=== PATIENT | female | born 1960 | race Caucasian/White ===

== ENCOUNTER → 2020-06-11 15:33 | Outpatient (BNVA) | payer OTHER, SELFPAY | PROVIDERS: PCP Internal Medicine; Referring Provider Internal Medicine; Visit Provider Nurse Practitioner | DX: Z76.89 Persons encountering health services in other specified circumstances (principal) ==

== ENCOUNTER 2020-07-11 12:17 | Outpatient (REF) | payer OTHER, SELFPAY ==
[2020-07-11 13:45] LABS: COVID-19 Test Negative (Negative)
== END 2020-07-11 12:18 | disposition home or self-care (01) ==
LOC: HO.EMPCOV 12:17
PROVIDERS: Visit Provider Internal Medicine
DX: Z20.828 Contact with and (suspected) exposure to other viral communicable diseases (principal)
CPT/HCPCS: 36415; 87635; C9803

== ENCOUNTER 2020-08-09 08:18 | Day surgery (SDC) | payer OTHER, SELFPAY ==
[2020-08-02 14:33] VITALS: BMI 27.4
--- NOTE | 2020-08-08 08:37 | P.CONAN_ITS ---
Documented by User: Bernie Sandoval 08/08/20 08:40 HPI - Anesthesia Eval Consult details Narrative: 60yo F for Colonoscopy [facility] Past Medical History Medical History Depression Elevated cholesterol Hypertension KELLY (obstructive sleep apnea) Thyroid nodule Family History Family History Father Parkinsons Asbestos exposure Mother COPD (chronic obstructive pulmonary disease) Diabetes Surgical History Surgical History H/O esophagogastroduodenoscopy History of partial splenectomy History of surgery on right wrist Hx of cholecystectomy Hx of colonoscopy Hx of hysterectomy Social History Social History Are you a primary healthcare business analyst to a significant other at home: No Do you presently have visiting nurse or other home services: No Alcohol intake: current Alcohol intake frequency: a few times a month Smoking Status: Former smoker Tobacco Type: Cigarette Smoking Quit Date: 2000 Use of substances other than those prescribed or required for medical reasons: No Advance Directives: No Advance Directives Information Provided: No Advance Directives on File: No Meds Allergies Allergy/AdvReac Type Severity Reaction Status Date / Time No Known Allergies Allergy Verified 08/02/20 14:23 [No Known Allergies*] Home Medications Medication Instructions Recorded Confirmed Type cholestyramine (with sugar) 4 gram See Rx Instructions .ROUTE .COMPLEX 06/11/20 08/02/20 History oral powder Exam Exam Date and Time: August 08, 2020 0837 Height,Weight and Vital Signs: Height 5 ft 6 in Weight 77.111 kg Assessment and Plan Assessment Anesthesia Assessment: Chart Reviewed Documented by User: Perri Weiss 08/09/20 09:25 [facility] Past Medical History Medical History Depression Elevated cholesterol Hypertension KELLY (obstructive sleep apnea) Thyroid nodule Family History Family History Father Parkinsons Asbestos exposure Mother COPD (chronic obstructive pulmonary disease) Diabetes Surgical History Surgical History H/O esophagogastroduodenoscopy History of partial splenectomy History of surgery on right wrist Hx of cholecystectomy Hx of colonoscopy Hx of hysterectomy Social History Social History Are you a primary healthcare business analyst to a significant other at home: No Do you presently have visiting nurse or other home services: No Alcohol intake: current Alcohol intake frequency: a few times a month Smoking Status: Former smoker Tobacco Type: Cigarette Smoking Quit Date: 2000 Use of substances other than those prescribed or required for medical reasons: No Advance Directives: No Advance Directives Information Provided: No Advance Directives on File: No Meds Allergies Allergy/AdvReac Type Severity Reaction Status Date / Time No Known Allergies Allergy Verified 08/02/20 14:23 [No Known Allergies*] Home Medications Medication Instructions Recorded Confirmed Type cholestyramine (with sugar) 4 gram See Rx Instructions .ROUTE .COMPLEX 06/11/20 08/02/20 History oral powder Exam Airway Mallampati Class: I (Permanent upper bridge) TM Dist: >3cm Neck ROM: Full Heart: RRR Lungs: CTA Assessment and Plan Assessment Anesthesia Assessment: Anesthesia Plan Discussed and Chart Reviewed Final Anesthetic Review NPO: Yes ASA Class: II Final Preanesthetic Review: Meds/Allgs Chart Reviewed, Consent Obtained/Reviewed and Anes Risks/Benef Reviewed Patient Risk: Low Procedure Risk: Low Anesthetic Plan Anesthetic Plan: MAC: Disposition: Standard PACU
[2020-08-09 08:49] VITALS: BP 142/68; PULSE 74; RESP 16; TEMP 37.1; O2SAT 98
[2020-08-09] MEDS: Lactated Ringers 1,000 ML 100 ML IVCONT (08:54)
--- NOTE | 2020-08-09 09:38 | MHC.SHP ---
Pre-Procedural Eval Section B Chief Complaint: screening Details of Present Illness: COLON CANCER SCREENING-NHR NO CLINICAL CHANGES FROM PREPROCEDURE EVAL IN 06/24 Relevant Family History (Specify if Yes): No Relevant Social History: None Present Medications: see Short Stay Collaborative assessment Medical History: Significant History (GERD, BILE SALT DIARRHEA, HYPERTENSION) History of Previous Operations: Relevant previous surgery/procedure and date(s) (PREVIOUS COLO-NEG.) Allergies: Allergies Allergy/AdvReac Type Severity Reaction Status Date / Time No Known Allergies Allergy Verified 08/02/20 14:23 [No Known Allergies*] Review of Systems Sugical H&P ROS: Negative: Constitution, Cardiovascular and Respiratory and Yes, Specify: Psychiatric (MILD ANXIETY) and Gastrointestinal (HX GERD/BILE SALT DIARRHEA) Exam Surgical H&P Exam: Normal: HEENT, Normal: Heart, Normal: Lungs, Normal: Extremities, Normal: Abdomen and Normal: Skin Plan Diagnosis/Plan: Unchanged I have reviewed the history and physical and performed a pertinent physical examination on my patient. No changes have occurred unless specified.yes
--- NOTE | 2020-08-09 10:03 | PM.PROC ---
Brief Operative Note Date of procedure: 08/09/20 Pre-op diagnosis: Colon cancer screening--NHR Post-op diagnosis: other (Normal exam) Procedure: Colonscopy--no biopsies. ROSENDA-NOrmal tone Scope insertied and easily advanced to sigmoid, transverse ascending colon into cecmu. Gentle pressere assist to get in. AO/Valve well seen. PREP: Good, moderate residual bilious coating easily flushed. Good rotational views on withdrawal. No polyps, no mucosal changes, ARV clear. REPEAT SCREENING IN 10 YEARS. Anesthesia: MAC (Emre ARITA CRNA) Surgeon: Thad Wilson Estimated blood loss (mL): 0 Pathology: none sent Condition: stable Disposition: PACU
[2020-08-09 10:06] VITALS: BP 144/77; PULSE 66; RESP 12; TEMP 36.1; O2SAT 97
[2020-08-09 10:21] VITALS: BP 151/73; PULSE 66; RESP 18; O2SAT 97
[2020-08-09 10:36] VITALS: BP 153/72; PULSE 63; RESP 18; O2SAT 98
== END 2020-08-09 11:06 | disposition home or self-care (01) ==
PROVIDERS: Visit Provider Internal Medicine Gastroenterology
PROC: 0DJD8ZZ Inspection of Lower Intestinal Tract, Via Natural or Artificial Opening Endoscopic (ICD-10-PCS; CPT 45378; principal; 2020-08-09 10:00)
DX: Z12.11 Encounter for screening for malignant neoplasm of colon (principal); I10 Essential (primary) hypertension
CPT/HCPCS: 45378

== ENCOUNTER → 2020-09-20 15:30 | Outpatient (BNVA) | payer OTHER, SELFPAY | PROVIDERS: PCP Internal Medicine; Visit Provider Nurse Practitioner ==

== ENCOUNTER 2020-09-25 16:02 | Outpatient (REF) | payer OTHER, SELFPAY ==
--- NOTE | ~2020-09-25 | MM_ITS ---
EXAMINATION: MM SCREENING DIGITAL BREAST TOMOSYNTHESIS, BILATERAL CLINICAL INFORMATION: Screening. Asymptomatic. The lifetime risk of breast cancer based on the Tyrer-Cuzick Model is 10%. COMPARISON: Mammography: 04/08/2019, 06/17/2017, outside exam 01/19/2015 ([facility]) TECHNIQUE: Digital breast tomosynthesis is performed in both the craniocaudal and mediolateral oblique views along with computer-aided detection (CAD). Synthesized 2D images are generated from the tomosynthesis. Additional left MLO view is provided. FINDINGS: The breasts are heterogeneously dense, which may obscure small masses (ACR BI-RADS breast composition Category c). Breast tissue composition borders on extremely dense. There is fibronodular parenchymal pattern similar to prior exams. No developing density. No interval mass or architectural abnormality or abnormal calcifications . Skin contours are smooth. No significant changes. MM/MM tomosynthesis screening BI IMPRESSION: No significant changes from prior studies. ASSESSMENT: BI-RADS 2: Benign RECOMMENDATION: Routine annual mammography screening. This patient's information was entered into a reminder system with a target due date for their next mammogram.
== END 2020-09-25 16:03 | disposition home or self-care (01) ==
LOC: HO.MAMMO 16:02
PROVIDERS: PCP Internal Medicine; Visit Provider Internal Medicine
DX: Z12.31 Encounter for screening mammogram for malignant neoplasm of breast (principal)
CPT/HCPCS: 77063; 77067

== ENCOUNTER 2020-10-11 10:22 | Outpatient (REF) | payer OTHER, SELFPAY ==
[2020-10-11 10:55] LABS: COVID-19 Test Negative (Negative)
== END 2020-10-11 10:23 | disposition home or self-care (01) ==
LOC: HO.EMPCOV 10:22
PROVIDERS: Visit Provider Internal Medicine
DX: Z20.822 Contact with and (suspected) exposure to COVID-19 (principal)
CPT/HCPCS: 36415; 87635; C9803

== ENCOUNTER → 2020-10-15 12:33 | Outpatient (BNVA) | payer OTHER, SELFPAY | PROVIDERS: Visit Provider Orthopaedic Surgery | DX: M70.61 Trochanteric bursitis, right hip (principal) | CPT/HCPCS: 99202; J1100 ==

== ENCOUNTER → 2020-11-01 14:15 | Outpatient (BNVA) | payer OTHER, SELFPAY | PROVIDERS: Visit Provider Nurse Practitioner ==

== ENCOUNTER 2021-05-10 06:43 | Outpatient (REF) | payer OTHER, SELFPAY ==
[2021-05-10 11:43] LABS: Hematocrit 45.2 % (37.0-47.0); Hemoglobin 14.7 g/dl (12.0-16.0); Mean Corpuscular HGB Conc 32.5 g/dl (31.0-35.0); Mean Corpuscular Hemoglobin 32.1 pg (27.0-33.0); Mean Corpuscular Volume 98.7 fL (80.0-98.0); Mean Platelet Volume 12.1 fL (9.4-12.3); Platelet Count 298 X10*3/uL (160-400); Red Blood Count 4.58 X10*6/uL (4.20-5.50); Red Cell Distribution Width 13.7 % (11.0-16.0); White Blood Count 5.7 X10*3/uL (4.8-10.8)
[2021-05-10 12:05] LABS: Estimated Average Glucose 105 mg/dL; Hemoglobin A1C 131.7052 umol/L; Hemoglobin A1c % 5.3 %
[2021-05-10 12:08] LABS: Alanine Aminotransferase 54 U/L (0-31); Albumin Level 4.3 g/dL (3.5-5.0); Alkaline Phosphatase 102 U/L (39-117); Anion Gap 15 (12-20); Aspartate Amino Transferase 34 U/L (5-31); Bilirubin Total 0.6 mg/dL (0.0-1.0); Blood Urea Nitrogen 14 mg/dL (9-16); Calcium 8.8 mg/dL (8.4-10.2); Carbon Dioxide 25 mmol/L (22-29); Chloride 106 mmol/L (96-108); Cholesterol 317 mg/dL; Estimated Glomerular Filt Rate > 60; Glucose Fasting 114 mg/dL (60-99); HDL Cholesterol 58 mg/dL; LDL Cholesterol Calculated 228 mg/dl; Potassium 4.5 mmol/L (3.3-5.1); Sodium 141 mmol/L (135-145); Triglycerides 158 mg/dL
[2021-05-10 17:11] LABS: Creatinine Urine 163.57 mg/dL; Microalbum/Creatinine Ratio Ur 4.8 ug/mg cr
== END 2021-05-10 06:44 | disposition home or self-care (01) ==
LOC: HO.HMGCLDS 06:43
PROVIDERS: PCP Internal Medicine; Visit Provider Internal Medicine
DX: Z00.00 Encounter for general adult medical examination without abnormal findings (principal); E78.5 Hyperlipidemia, unspecified; I10 Essential (primary) hypertension
CPT/HCPCS: 36415; 80053; 80061; 82043; 83036; 85027

== ENCOUNTER 2021-08-30 06:56 | Outpatient (REF) | payer OTHER, SELFPAY ==
[2021-08-30 11:07] LABS: Hematocrit 42.7 % (37.0-47.0); Hemoglobin 14.1 g/dl (12.0-16.0); Mean Corpuscular Hemoglobin 31.8 pg (27.0-33.0); Mean Corpuscular Volume 96.4 fL (80.0-98.0); Mean Platelet Volume 11.5 fL (9.4-12.3); Platelet Count 283 X10*3/uL (160-400); Red Blood Count 4.43 X10*6/uL (4.20-5.50); Red Cell Distribution Width 12.8 % (11.0-16.0); White Blood Count 6.2 X10*3/uL (4.8-10.8)
[2021-08-30 11:18] LABS: Appearance Urine CLEAR; Color Urine YELLOW; Glucose Urine UA NEG (NEG); Leukocyte Esterase Urine NEG (NEG); Nitrite Urine NEG (NEG); Urine Blood NEG (NEG); Urine Ketones NEG (NEG); Urine Protein NEG (NEG-TRACE)
[2021-08-30 11:26] LABS: Alanine Aminotransferase 35 U/L (0-31); Albumin Level 4.3 g/dL (3.5-5.0); Alkaline Phosphatase 100 U/L (39-117); Anion Gap 14 (12-20); Aspartate Amino Transferase 23 U/L (5-31); Bilirubin Total 0.6 mg/dL (0.0-1.0); Blood Urea Nitrogen 13 mg/dL (9-16); Calcium 9.2 mg/dL (8.4-10.2); Carbon Dioxide 26 mmol/L (22-29); Chloride 104 mmol/L (96-108); Cholesterol 187 mg/dL; Estimated Glomerular Filt Rate > 60; Glucose Fasting 110 mg/dL (60-99); HDL Cholesterol 55 mg/dL; LDL Cholesterol Calculated 104 mg/dl; Potassium 4.3 mmol/L (3.3-5.1); Sodium 140 mmol/L (135-145); Total Protein 7.1 g/dL (6.5-8.0); Triglycerides 140 mg/dL
[2021-08-30 11:29] LABS: RBC Urine 0 /HPF (0); Squamous Epithelial Cell Urine 1+ /LPF; WBC Urine 0 /HPF (0-4)
[2021-08-30 11:30] LABS: Mucus Urine 1+ /LPF
[2021-08-30 11:49] LABS: TSH reflex Free T4 2.52 uIU/mL (0.32-4.0); Vitamin D 25-OH Total 17.6 ng/mL (>30)
[2021-09-04 00:32] LABS: FIB-ALT 31 U/L (6-29); FIB-Alpha-2-Macroglobulin 176 mg/dL (106-279); FIB-Apolipoprotein A1 186 mg/dL (101-198); FIB-GGT 38 U/L (3-65); FIB-Haptoglobin 179 mg/dL (43-212); FIB-Total Bilirubin 0.5 mg/dL (0.2-1.2); Liver Fibrosis Score 0.12; Liver Fibrosis Stage F0; Nec Inflam Act Grade A0; Nec Inflam Act Score 0.12
== END 2021-08-30 06:57 | disposition home or self-care (01) ==
LOC: HO.HMGCLDS 06:56
PROVIDERS: Visit Provider Internal Medicine
DX: Z00.00 Encounter for general adult medical examination without abnormal findings (principal); I10 Essential (primary) hypertension; E78.5 Hyperlipidemia, unspecified
CPT/HCPCS: 36415; 80053; 80061; 81001; 81596; 82306; 84443; 85027

== ENCOUNTER → 2021-11-06 11:30 | Outpatient (BNVA) | payer SELFPAY | PROVIDERS: PCP Internal Medicine | DX: Z13.89 Encounter for screening for other disorder (principal) ==

== ENCOUNTER 2022-05-02 06:41 | Outpatient (REF) | payer OTHER, SELFPAY ==
[2022-05-02 11:37] LABS: Hematocrit 41.6 % (37.0-47.0); Hemoglobin 13.6 g/dl (12.0-16.0); Mean Corpuscular HGB Conc 32.7 g/dl (31.0-35.0); Mean Corpuscular Hemoglobin 32.2 pg (27.0-33.0); Mean Corpuscular Volume 98.6 fL (80.0-98.0); Mean Platelet Volume 11.8 fL (9.4-12.3); Platelet Count 256 X10*3/uL (160-400); Red Blood Count 4.22 X10*6/uL (4.20-5.50); Red Cell Distribution Width 12.8 % (11.0-16.0); White Blood Count 5.6 X10*3/uL (4.8-10.8)
[2022-05-02 11:52] LABS: Appearance Urine Clear; Color Urine Yellow; Glucose Urine UA Negative (Negative); Leukocyte Esterase Urine Negative (Negative); Nitrite Urine Negative (Negative); Specific Gravity - Urine 1.015 (1.005-1.025); Urine Blood Negative (Negative); Urine Ketones Negative (Negative); Urine Protein Negative (Neg-Trace)
[2022-05-02 11:57] LABS: Bacteria Urine None Seen (None Seen); Hyaline Casts Urine 0-2 /LPF (0-2); RBC Urine 0-2 /HPF (0-2); Squamous Epithelial Cell Urine 0-2 /HPF (0-2); WBC Urine 0-5 /HPF (0-5)
[2022-05-02 12:03] LABS: Alanine Aminotransferase 43 U/L (0-31); Albumin Level 4.3 g/dL (3.5-5.0); Alkaline Phosphatase 94 U/L (39-117); Anion Gap 15 (12-20); Aspartate Amino Transferase 29 U/L (5-31); Bilirubin Total 0.3 mg/dL (0.0-1.0); Blood Urea Nitrogen 14 mg/dL (9-16); Calcium 9.2 mg/dL (8.4-10.2); Carbon Dioxide 26 mmol/L (22-29); Chloride 103 mmol/L (96-108); Cholesterol 185 mg/dL; Estimated Glomerular Filt Rate > 60; Glucose Fasting 111 mg/dL (60-99); HDL Cholesterol 60 mg/dL; LDL Cholesterol Calculated 104 mg/dl; Potassium 4.4 mmol/L (3.3-5.1); Sodium 140 mmol/L (135-145); Total Protein 6.9 g/dL (6.5-8.0); Triglycerides 105 mg/dL
== END 2022-05-02 06:42 | disposition home or self-care (01) ==
LOC: HO.HMGCLDS 06:41
PROVIDERS: PCP Internal Medicine; Visit Provider Internal Medicine
DX: Z00.00 Encounter for general adult medical examination without abnormal findings (principal); E78.5 Hyperlipidemia, unspecified; I10 Essential (primary) hypertension
CPT/HCPCS: 36415; 80053; 80061; 81001; 84443; 85027

== ENCOUNTER 2022-10-29 13:33 | Outpatient (REF) | payer OTHER, SELFPAY ==
--- NOTE | ~2022-10-29 | MM_ITS ---
EXAMINATION: MM SCREENING DIGITAL BREAST TOMOSYNTHESIS, BILATERAL CLINICAL INFORMATION: Screening. Asymptomatic. The lifetime risk of breast cancer based on the Tyrer-Cuzick Model is 11.1%. COMPARISON: Mammography: September 25, 2020 and studies dating back to August 09, 2013 TECHNIQUE: Digital breast tomosynthesis is performed in both the craniocaudal and mediolateral oblique views along with computer-aided detection (CAD). Synthesized 2D images are generated from the tomosynthesis. FINDINGS: The breasts are extremely dense, which lowers the sensitivity of mammography (ACR BI-RADS breast composition Category d). There are no significant masses, abnormal calcifications, or other abnormalities. MM/MM tomosynthesis screening BI IMPRESSION: No significant changes ASSESSMENT: BI-RADS 1: Negative RECOMMENDATION: Routine annual mammography screening. This patient's information was entered into a reminder system with a target due date for their next mammogram.
== END 2022-10-29 13:34 | disposition home or self-care (01) ==
LOC: HO.MAMMO 13:33
PROVIDERS: Visit Provider Internal Medicine
DX: Z12.31 Encounter for screening mammogram for malignant neoplasm of breast (principal)
CPT/HCPCS: 77063; 77067

== ENCOUNTER 2022-12-19 06:49 | Outpatient (REF) | payer OTHER, SELFPAY ==
[2022-12-19 11:17] LABS: MANUAL DIFF FLAG NO
[2022-12-19 11:32] LABS: Basophils Percent Auto 0.5 % (0-2); Eosinophils Absolute Auto 0.2 X10*3/uL (0.0-0.4); Eosinophils Percent Auto 2.3 % (0-4); Hematocrit 42.8 % (37.0-47.0); Imm Gran Abs Auto 0.01 X10*3/uL (0.00-0.03); Imm Gran Pct Auto 0.2 % (0.0-0.4); Lymphocytes Absolute Auto 1.8 X10*3/uL (1.2-4.9); Lymphocytes Percent Auto 27.9 % (20-40); Mean Corpuscular HGB Conc 32.7 g/dl (31.0-35.0); Mean Corpuscular Hemoglobin 32.3 pg (27.0-33.0); Mean Corpuscular Volume 98.8 fL (80.0-98.0); Mean Platelet Volume 11.5 fL (9.4-12.3); Monocytes Absolute Auto 0.7 X10*3/uL (0.1-1.2); Monocytes Percent Auto 10.9 % (2-11); Neutrophils Absolute Auto 3.8 x10*3/uL (2.0-8.3); Neutrophils Percent Auto 58.2 % (45-73); Platelet Count 267 X10*3/uL (160-400); Red Blood Count 4.33 X10*6/uL (4.20-5.50); Red Cell Distribution Width 13.2 % (11.0-16.0); White Blood Count 6.5 X10*3/uL (4.8-10.8)
[2022-12-19 11:57] LABS: Alanine Aminotransferase 53 U/L (0-31); Albumin Level 4.2 g/dL (3.5-5.0); Alkaline Phosphatase 99 U/L (39-117); Anion Gap 14 (12-20); Aspartate Amino Transferase 40 U/L (5-31); Bilirubin Total 0.7 mg/dL (0.0-1.0); Blood Urea Nitrogen 13 mg/dL (9-16); Calcium 9.4 mg/dL (8.4-10.2); Carbon Dioxide 25 mmol/L (22-29); Chloride 106 mmol/L (96-108); Cholesterol 178 mg/dL; Estimated Glomerular Filt Rate > 60; Glucose Fasting 106 mg/dL (60-99); HDL Cholesterol 58 mg/dL; LDL Cholesterol Calculated 100 mg/dl; Potassium 4.4 mmol/L (3.3-5.1); Sodium 141 mmol/L (135-145); Total Protein 7.2 g/dL (6.5-8.0); Triglycerides 103 mg/dL
[2022-12-19 12:18] LABS: TSH reflex Free T4 2.97 uIU/mL (0.32-4.0)
[2022-12-19 12:23] LABS: Folate 11.7 ng/mL (> or = 4.0); Vitamin B12 406 pg/mL (200-900)
== END 2022-12-19 06:50 | disposition home or self-care (01) ==
LOC: HO.HMGCLDS 06:49
PROVIDERS: PCP Internal Medicine; Visit Provider Internal Medicine
DX: Z00.00 Encounter for general adult medical examination without abnormal findings (principal); E78.5 Hyperlipidemia, unspecified; I10 Essential (primary) hypertension
CPT/HCPCS: 36415; 80053; 80061; 82306; 82607; 82746; 84443; 85025

== ENCOUNTER 2023-06-19 06:46 | Outpatient (REF) | payer OTHER, SELFPAY ==
[2023-06-19 11:19] LABS: MANUAL DIFF FLAG NO
[2023-06-19 11:25] LABS: Basophils Percent Auto 0.7 % (0-2); Eosinophils Absolute Auto 0.2 X10*3/uL (0.0-0.4); Eosinophils Percent Auto 2.8 % (0-4); Hematocrit 41.6 % (37.0-47.0); Hemoglobin 13.6 g/dl (12.0-16.0); Imm Gran Abs Auto 0.01 X10*3/uL (0.00-0.03); Imm Gran Pct Auto 0.2 % (0.0-0.4); Lymphocytes Absolute Auto 1.8 X10*3/uL (1.2-4.9); Mean Corpuscular HGB Conc 32.7 g/dl (31.0-35.0); Mean Corpuscular Hemoglobin 31.4 pg (27.0-33.0); Mean Corpuscular Volume 96.1 fL (80.0-98.0); Mean Platelet Volume 11.8 fL (9.4-12.3); Monocytes Absolute Auto 0.8 X10*3/uL (0.1-1.2); Monocytes Percent Auto 13.5 % (2-11); Neutrophils Absolute Auto 3.2 x10*3/uL (2.0-8.3); Neutrophils Percent Auto 52.8 % (45-73); Platelet Count 255 X10*3/uL (160-400); Red Blood Count 4.33 X10*6/uL (4.20-5.50); Red Cell Distribution Width 13.2 % (11.0-16.0)
[2023-06-19 11:40] LABS: Estimated Average Glucose 111 mg/dL; Hemoglobin A1c % 5.5 % (<6.0)
[2023-06-19 12:11] LABS: Alanine Aminotransferase 28 U/L (0-31); Albumin Level 4.2 g/dL (3.5-5.0); Alkaline Phosphatase 100 U/L (39-117); Anion Gap 15 (12-20); Aspartate Amino Transferase 19 U/L (5-31); Bilirubin Total 0.4 mg/dL (0.0-1.0); Blood Urea Nitrogen 16 mg/dL (9-16); Calcium 8.9 mg/dL (8.4-10.2); Carbon Dioxide 22 mmol/L (22-29); Chloride 109 mmol/L (96-108); Cholesterol 161 mg/dL (<200); Estimated Glomerular Filt Rate > 60; Glucose Fasting 114 mg/dL (60-99); HDL Cholesterol 52 mg/dL (>40); LDL Cholesterol Calculated 91 mg/dL (<100); Potassium 4.1 mmol/L (3.3-5.1); Sodium 142 mmol/L (135-145); Total Protein 7.1 g/dL (6.5-8.0); Triglycerides 92 mg/dL (<150)
[2023-06-19 12:14] LABS: Vitamin D 25-OH Total 21.4 ng/mL (>30)
[2023-06-19 14:01] LABS: Creatinine Urine 131.96 mg/dL
== END 2023-06-19 06:47 | disposition home or self-care (01) ==
LOC: HO.HMGCLDS 06:46
PROVIDERS: PCP Internal Medicine; Visit Provider Internal Medicine
DX: R73.9 Hyperglycemia, unspecified (principal); I10 Essential (primary) hypertension; E55.9 Vitamin D deficiency, unspecified; E78.5 Hyperlipidemia, unspecified
CPT/HCPCS: 36415; 80053; 80061; 82043; 82306; 82570; 83036; 85025

== ENCOUNTER 2023-06-24 13:19 | Outpatient (AMB) | payer OTHER, SELFPAY ==
[2023-06-24 13:48] VITALS: BP 124/76; PULSE 83; O2SAT 96; BMI 29.7
--- NOTE | 2023-06-24 13:48 | MHC.PC.OV ---
Vital Signs 06/24/23 13:48 Height 5 ft 6 in Weight 184 lb BMI 29.7 BP 124/76 Blood Pressure Location Lt brachial Position Sitting Pulse 83 Pulse Source Pulse Oximeter Pulse Oximetry (%) 96 Oxygen Delivery Method Room Air Intake Visit Reasons: PE Intake Note: Pt is here today for PE. Allergies No Known Allergies [No Known Allergies*] Allergy (Verified 06/24/23 13:49) Tobacco use date assessed: 06/24/23 Fall risk assessment: No Falls in past year Last assessed Fall Risk: 06/24/23 Dental Screening Dental Screen Date: 06/24/23 Did you have a dental visit in the last 12 months?: Yes Did you have a dental problem in the last 6 months where you did not have access to dental care?: No Was dental information given to patient?: Patient has dentist HPI PE HPI Details Patient presents for PE. She complains of bilateral shoulder pain worse when using her upper extremities lifting or carrying and bilateral lateral thigh pain when walking longer distance. Patient denies lower back pain sciatica symptoms change in the bowel or bladder function. [facility] Medical History Annual physical exam Depression Dysplastic nevi Elevated cholesterol Elevated LFTs Hyperlipidemia Hypertension KELLY (obstructive sleep apnea) Thyroid nodule Tinnitus Trochanteric bursitis of right hip Surgical History History of partial splenectomy History of surgery on right wrist Hx of hysterectomy Hx of cholecystectomy H/O esophagogastroduodenoscopy Hx of colonoscopy Family History Father Parkinsons Asbestos exposure Mother COPD (chronic obstructive pulmonary disease) Diabetes Social History Household Members: Spouse Housing: House Are you a primary day care home provider to a significant other at home: No Do you presently have visiting nurse or other home services: No Alcohol intake: current Alcohol intake frequency: holidays/special occasions only Patient Tobacco Use Status: Former Tobacco user Quit Date: 2000 e-Cigarette/Vaping Use: Never Used Current occupational status: employed Cognitive needs: No Hearing needs: No Vision needs: Yes Questionnaire Thrive Questionnaire Date Thrive assessed: 12/22/22 CARA-7 AMB Questionnaire CARA-7 Date CARA - 7 assessed: 12/22/22 Source: Developed by Drs. Sunny Monk, Lou Pinto, Sourav Ott and colleagues, with an educational moustapha from [email or web address]. Review of Systems Const All systems reviewed & are unremarkable except as noted in HPI and below Reports no additional complaints Eyes Reports no additional complaints ENT Reports no additional complaints Card Reports no additional complaints Resp Reports no additional complaints GI Reports no additional complaints Reports no additional complaints Musc Reports no additional complaints Physical exam (Primary Care) Vital Signs: Last Vital Signs Pulse 83 06/24/23 13:48 BP 124/76 06/24/23 13:48 Pulse Ox 96 06/24/23 13:48 Oxygen Delivery Method Room Air 06/24/23 13:48 BMI result Body Mass Index 29.7 Tobacco/Smoking Status: Tobacco use Status Tobacco use date assessed 06/24/23 06/24/23 13:50 Patient Tobacco Use Status Former Tobacco user 06/24/23 13:50 e-Cigarette/Vaping Use Never Used 06/24/23 13:50 Thrive Assessment: Date of Thrive Assessment Date Thrive assessed 12/22/22 06/24/23 13:50 Const General: no acute distress HENMT Head: Yes normal to inspection Ears: hearing grossly normal bilaterally Face and sinus: Yes normal facial exam Eyes General: appearance normal, both eyes and all related structures Neck Neck: Yes no lymphadenopathy and Yes supple Resp Effort & Inspection: normal respiratory effort Auscultation: clear to auscultation bilaterally Cardio Rhythm: regular rhythm Heart sounds: S1 normal heart sound present and S2 normal heart sound present GI Inspection: Yes normal to inspection Palpation (GI): Soft to palpation Percussion: Yes normal to percussion Auscultation: normal bowel sounds Extrem Other: Decreased range of motion of the right shoulder, there is no joint tenderness erythema or warmth General: Yes no clubbing, cyanosis or edema Assessment and Plan Assessment & Plan (1) Annual physical exam: Code(s): Z00.00 - Encounter for general adult medical examination without abnormal findings Plan: Well-balanced diet and regular physical activity discussed with the patient. She is up-to-date with mammogram and will schedule dexa (2) Hyperlipidemia: Comment: cont statin Code(s): E78.5 - Hyperlipidemia, unspecified Plan: Patient was advised to decrease Crestor to half a tablet and at c/o Q10 supplement if the myalgia and arthralgia persist statin will be held for 2 months (3) Shoulder pain, right: Code(s): M25.511 - Pain in right shoulder Plan: Check x-ray start range of motion exercises patient declined physical therapy (4) Myalgia: Code(s): M79.10 - Myalgia, unspecified site Plan: As above check sed rate and CPK level (5) Postmenopausal: Code(s): Z78.0 - Asymptomatic menopausal state Plan: Check DEXA (6) Hypertension: Code(s): I10 - Essential (primary) hypertension Plan: Continue medications Orders: Orders Erythrocyte Sedimentation Rate Today M79.10 - Myalgia, unspecified site Creatine Kinase Total Today M79.10 - Myalgia, unspecified site XR DEXA axial skeleton Today Z00.00 - Encounter for general adult medical examination without abnormal findings, Z78.0 - Asymptomatic menopausal state XR shoulder RT min 2V Today M25.511 - Pain in right shoulder Coding Level of Care Code Est Pt Prev Care 40-64y(04574) Diagnoses Annual physical exam Z00.00 Hyperlipidemia E78.5 Shoulder pain, right M25.511 Myalgia M79.10 Postmenopausal Z78.0 Hypertension I10
== END 2023-06-24 14:42 | disposition home or self-care (01) ==
PROVIDERS: Visit Provider Internal Medicine
DX: Z00.00 Encounter for general adult medical examination without abnormal findings (principal); E78.5 Hyperlipidemia, unspecified; M25.511 Pain in right shoulder; M79.10 Myalgia, unspecified site; Z78.0 Asymptomatic menopausal state; I10 Essential (primary) hypertension
CPT/HCPCS: 99396

== ENCOUNTER 2023-06-24 14:42 | Outpatient (REF) | payer OTHER, SELFPAY ==
[2023-06-24 18:02] LABS: Erythrocyte Sedimentation Rate 8 MM/HR (0-20)
== END 2023-06-24 14:43 | disposition home or self-care (01) ==
LOC: HO.HMGCLDS 14:42
PROVIDERS: PCP Internal Medicine; Visit Provider Internal Medicine
DX: M79.10 Myalgia, unspecified site (principal)
CPT/HCPCS: 36415; 82550; 85652

== ENCOUNTER 2023-07-27 06:58 | Outpatient (REF) | payer OTHER, SELFPAY | END 2023-07-27 06:59 | disposition home or self-care (01) | LOC: HO.HMGCLDS 06:58 | PROVIDERS: PCP Internal Medicine; Visit Provider Internal Medicine | DX: R74.8 Abnormal levels of other serum enzymes (principal) | CPT/HCPCS: 36415; 82550 ==

== ENCOUNTER 2023-08-06 08:01 | Outpatient (AMB) | payer OTHER, SELFPAY ==
--- NOTE | 2023-08-06 08:05 | MHC.OFFWIV ---
Intake Vital Signs 08/06/23 08:09 Height 5 ft 6 in Weight 184 lb BMI 29.7 BP 142/78 H Blood Pressure Location Lt brachial Position Sitting Pulse 91 Pulse Source Pulse Oximeter Temp 99.0 F Temp Source Oral Pulse Oximetry (%) 96 Oxygen Delivery Method Room Air Intake Visit Reasons: EP Cough, Lightheaded, wheezing (masked) Intake Note: pt is here for c/o cough, lightheaded, wheezing, patient states it started since thursday Patient Tobacco Use Status: Former Tobacco user Quit Date: 2000 Allergies No Known Allergies [No Known Allergies*] Allergy (Verified 08/06/23 08:07) Medication List - Last Reconciled 08/06/23 by Shoshana Escudero NP acetaminophen 1,000 mg (2 x 500 mg) PO Q6H PRN albuterol sulfate 90 mcg/actuation 2 puffs inhalation Q4-6H PRN amlodipine-olmesartan 10-40 mg 1 tab PO DAILY azithromycin 500 mg PO DAILY 5 days cholestyramine (with sugar) 4 gram 4 g p.o. b.i.d. dissolved in water; PO; 30 days esomeprazole magnesium 40 mg PO DAILY paroxetine HCl 40 mg PO DAILY prednisone 50 mg PO DAILY 5 days rosuvastatin 20 mg PO DAILY Do you need a note to return to daycare/school/sports/work: No HPI HPI Comments History of Present Illness Details 63 y/o female presents to walk in clinic with c/o cough, chest tightness, fatigue, anorexia and wheezing since Thursday. Pt has h/o Asthma as a child. Never needed any treatment as adult. [facility] Medical History Annual physical exam Depression Dysplastic nevi Elevated cholesterol Elevated LFTs Hyperlipidemia Hypertension KELLY (obstructive sleep apnea) Thyroid nodule Tinnitus Trochanteric bursitis of right hip Surgical History History of partial splenectomy History of surgery on right wrist Hx of hysterectomy Hx of cholecystectomy H/O esophagogastroduodenoscopy Hx of colonoscopy Family History Father Parkinsons Asbestos exposure Mother COPD (chronic obstructive pulmonary disease) Diabetes Social History Household Members: Spouse Housing: House Are you a primary care manager cna to a significant other at home: No Do you presently have visiting nurse or other home services: No Alcohol intake: current Alcohol intake frequency: holidays/special occasions only Patient Tobacco Use Status: Former Tobacco user Quit Date: 2000 e-Cigarette/Vaping Use: Never Used Current occupational status: employed Cognitive needs: No Hearing needs: No Vision needs: Yes Physical Exam Vital Signs: Last Vital Signs Temp 99.0 F 08/06/23 08:09 Pulse 91 08/06/23 08:09 BP 142/78 H 08/06/23 08:09 Pulse Ox 96 08/06/23 08:09 Oxygen Delivery Method Room Air 08/06/23 08:09 BMI result Body Mass Index 29.7 Const General: no acute distress HEENT Head: Yes normocephalic Ears: external ears normal and TM's normal bilaterally General nose exam: Abnormal mucous membranes and turbinates present boggy and erythematous Face and sinus: Yes sinus tenderness Mouth: moist mucous membranes Throat: Yes posterior oropharynx normal Resp Effort & Inspection: audible wheezes and Actively coughing Auscultation: no crackles, no rales, no rhonchi and wheezes scattered wheezes Cardio Palpation: normal PMI Rate: regular rate Rhythm: regular rhythm Office Procedures Nebulizer Treatment Nebulizer Treatment [id number] RX initial, or Nebulizer Subsequent Treatment Office Meds ipratropium 0.5 mg-albuterol 3 mg (2.5 mg base)/3 mL nebulization soln Performing Provider: Shoshana Escudero NP Performing Location: [facility] Administered by: Monika Lanza RN on 08/06/23 08:27 Dose Route Admin Location Dispensed Lot Number Expiration Date NDC Medical Secretary Receptionist 3 mL inhalation 3 mL [id number] 04/05/24 6857-3764-80 [facility] Assessment & Plan Assessment & Plan (1) Upper respiratory infection: Code(s): J06.9 - Acute upper respiratory infection, unspecified Qualifiers: URI type: unspecified viral URI Qualified Code(s): J06.9 - Acute upper respiratory infection, unspecified Plan: - Rest - warm fluids. -OTC cold remedies. Orders: Orders AMB Nebulizer Treatment Today R06.2 - Wheezing Medications: New azithromycin 500 mg PO DAILY 5 days 5 tabs 0RF prednisone 50 mg PO DAILY 5 days 5 tabs 0RF albuterol sulfate 90 mcg/actuation 2 puffs inhalation Q4-6H PRN 6.7 grams 0RF shortness of breath or wheezing J06.9 - Acute upper respiratory infection, unspecified acetaminophen 1,000 mg (2 x 500 mg) PO Q6H PRN 30 caps 0RF fever R51.9 - Headache, unspecified Coding Level of Care Code Est Pt Level 3 (60225) Diagnoses Viral upper respiratory tract infection J06.9 URI type: unspecified viral URI CPT Codes Nebulizer Treatment - Nebulizer Treatment, initial or subsequent: [id number] RX initial, or Nebulizer Subsequent Treatment ([id number]) Time Spent (min) 20
[2023-08-06 08:09] VITALS: BP 142/78; PULSE 91; TEMP 37.2; O2SAT 96; BMI 29.7
== END 2023-08-06 11:09 | disposition home or self-care (01) ==
PROVIDERS: PCP Internal Medicine; Visit Provider Nurse Practitioner Family
DX: J06.9 Acute upper respiratory infection, unspecified (principal); R06.2 Wheezing
CPT/HCPCS: 94640; 99213; J7620

== ENCOUNTER 2023-08-13 10:12 | Outpatient (AMB) | payer OTHER, SELFPAY ==
[2023-08-13 10:26] VITALS: BP 132/80; PULSE 88; O2SAT 95; BMI 29.0
--- NOTE | 2023-08-13 10:26 | A.OFFPC_ITS ---
Vital Signs 08/13/23 10:26 Height 5 ft 6 in Weight 180 lb BMI 29.0 BP 132/80 Blood Pressure Location Lt brachial Position Sitting Pulse 88 Pulse Source Pulse Oximeter Pulse Oximetry (%) 95 Oxygen Delivery Method Room Air Intake Visit Reasons: Still sick cough congestion Allergies No Known Allergies [No Known Allergies*] Allergy (Verified 08/13/23 10:33) Medication List - Last Reconciled 08/13/23 by Crissy Phan MD acetaminophen 1,000 mg (2 x 500 mg) PO Q6H PRN albuterol sulfate 90 mcg/actuation 2 puffs inhalation Q4-6H PRN albuterol sulfate 0.63 mg (3 mL) inhalation QID PRN amlodipine-olmesartan 10-40 mg 1 tab PO DAILY cholestyramine (with sugar) 4 gram 4 g p.o. b.i.d. dissolved in water; PO; 30 days doxycycline hyclate 100 mg PO BID esomeprazole magnesium 40 mg PO DAILY nebulizers As directed paroxetine HCl 40 mg PO DAILY prednisone Four tablets p.o. q.d. for 3 days then 3 tablets p.o. q.d. for 3 days and 2 tablets p.o. q.d. for 3 days then 1 tablet p.o. q.d. for 3 days rosuvastatin 20 mg PO DAILY Tobacco use date assessed: 08/13/23 Fall risk assessment: No Falls in past year Last assessed Fall Risk: 08/13/23 Dental Screening Dental Screen Date: 08/13/23 Did you have a dental visit in the last 12 months?: Yes Did you have a dental problem in the last 6 months where you did not have access to dental care?: No Was dental information given to patient?: Patient has dentist HPI Still sick cough congestion HPI Details Pt c/o 10 days cough persistent cough, wheezing, white sputum, fever up to 102 3 days ago, chills, body aches. She was initially prescribed Z-Baudilio and 5 days of prednisone in urgent care without significant relief. Patient has been using albuterol inhaler every 4 hours with some relief. She denies pleurisy or shortness of breath. [facility] Medical History Annual physical exam Depression Dysplastic nevi Elevated cholesterol Elevated LFTs Hyperlipidemia Hypertension KELLY (obstructive sleep apnea) Thyroid nodule Tinnitus Trochanteric bursitis of right hip Surgical History History of partial splenectomy History of surgery on right wrist Hx of hysterectomy Hx of cholecystectomy H/O esophagogastroduodenoscopy Hx of colonoscopy Family History Father Parkinsons Asbestos exposure Mother COPD (chronic obstructive pulmonary disease) Diabetes Social History Household Members: Spouse Housing: House Are you a primary administrator health care facility to a significant other at home: No Do you presently have visiting nurse or other home services: No Alcohol intake: current Alcohol intake frequency: holidays/special occasions only Patient Tobacco Use Status: Former Tobacco user Quit Date: 2000 e-Cigarette/Vaping Use: Never Used Current occupational status: employed Cognitive needs: No Hearing needs: No Vision needs: Yes Questionnaire PHQ-9 Over the last 2 weeks, how often have you been bothered by any of the following problems? 1. Little interest or pleasure in doing things: not at all 2. Feeling down, depressed, or hopeless: not at all 3. Trouble falling or staying asleep, or sleeping too much: not at all 4. Feeling tired or having little energy: more than half the days 5. Poor appetite or overeating: not at all 6. Feeling bad about yourself - or that you are a failure or have let yourself or your family down: not at all 7. Trouble concentrating on things, such as reading the newspaper or watching television: not at all 8. Moving or speaking so slowly that other people could have noticed. Or the opposite - being so fidgety or restless that you have been moving around a lot more than usual: not at all 9. Thoughts that you would be better off or of hurting yourself in some way: not at all Total score: 2 Depression Screening Interpretation: Negative Depression Screening Done: Yes Source: Developed by Drs. Sunny Monk, Lou Pinto, Sourav Ott and colleagues, with an educational moustapha from [employer]. Thrive Questionnaire Date Thrive assessed: 08/13/23 I am a: Patient What is your living situation today?: I have a steady place to live Within the past 12 months, did the food you bought not last and you didn't have the money to get more?: Never true Within the past 12 months, did you worry whether your food would run out before you got money to buy more?: Never true Do you have trouble paying for medicines?: No Do you have trouble getting transportation to medical appointments?: No Do you have trouble paying your heating and electricity bill?: No Do you have trouble taking care of your child, family member or friend?: No Do you have trouble with day-to-day activities such as bathing, preparing meals, shopping, managing finances, etc.?: No Are you currently unemployed and looking for a job?: No Are you interested in more education?: No Please select the resources that you would like help with: None Currently or been in a relationship where the following occur: no concerns reported THRIVE Score: 0 CARA-7 AMB Questionnaire CARA-7 Date CARA - 7 assessed: 08/13/23 Feeling nervous, anxious, or on edge: 0 = Not at all Not being able to stop or control worryin = Not at all Worrying too much about different things: 0 = Not at all Trouble relaxin = Not at all Being so restless that it is hard to sit still: 0 = Not at all Becoming easily annoyed or irritable: 0 = Not at all Feeling afraid as if something awful might happen: 0 = Not at all Total CARA-7 score (0-4 normal; 5-9 mild; 10-14 moderate; 15-21 severe): 0 Source: Developed by Drs. Sunny Monk, Lou Pinto, Sourav Ott and colleagues, with an educational moustapha from [employer]. Review of Systems Const All systems reviewed & are unremarkable except as noted in HPI and below Reports no additional complaints Eyes Reports no additional complaints ENT Reports no additional complaints Card Reports no additional complaints Resp Reports no additional complaints GI Reports no additional complaints Reports no additional complaints Physical exam (Primary Care) Vital Signs: Last Vital Signs Pulse 88 08/13/23 10:26 BP 132/80 08/13/23 10:26 Pulse Ox 95 08/13/23 10:26 Oxygen Delivery Method Room Air 08/13/23 10:26 BMI result Body Mass Index 29.0 Tobacco/Smoking Status: Tobacco use Status Tobacco use date assessed 08/13/23 08/13/23 10:32 Patient Tobacco Use Status Former Tobacco user 08/13/23 10:26 e-Cigarette/Vaping Use Never Used 08/13/23 10:26 PHQ-9: PHQ-9 Score PHQ-9: Total score 2 08/13/23 10:33 Depression Screening Interpretation: Negative Thrive Assessment: Date of Thrive Assessment Date Thrive assessed 08/13/23 08/13/23 10:33 Currently or been in a relationship where the following occur: no concerns reported Const General: no acute distress HENMT Head: Yes normal to inspection Face and sinus: Yes sinus tenderness Throat: Yes postnasal drainage Neck Neck: Yes supple and Yes anterior neck swelling Resp Effort & Inspection: normal respiratory effort Auscultation: rhonchi, wheezes and diminished lung sounds Cardio Rhythm: regular rhythm Heart sounds: S1 normal heart sound present and S2 normal heart sound present GI Inspection: Yes normal to inspection Palpation (GI): Soft to palpation Assessment and Plan Assessment & Plan (1) Bronchitis: Code(s): J40 - Bronchitis, not specified as acute or chronic Plan: Doxycycline prednisone taper and albuterol nebulized prescribed. Follow-up in 1 week, supportive care discussed with the patient Medications: New prednisone Four tablets p.o. q.d. for 3 days then 3 tablets p.o. q.d. for 3 days and 2 tablets p.o. q.d. for 3 days then 1 tablet p.o. q.d. for 3 days 30 tabs 0RF albuterol sulfate 0.63 mg (3 mL) inhalation QID PRN 75 mL 0RF shortness of b reath or wheezing doxycycline hyclate 100 mg PO BID 20 tabs 0RF nebulizers As directed 1 ea 0RF Coding Level of Care Code Est Pt Level 3 (85001) Diagnoses Bronchitis J40
== END 2023-08-13 11:29 | disposition home or self-care (01) ==
PROVIDERS: PCP Internal Medicine; Visit Provider Internal Medicine
DX: J40 Bronchitis, not specified as acute or chronic (principal)
CPT/HCPCS: 99213

== ENCOUNTER 2023-08-19 13:20 | Outpatient (AMB) | payer OTHER, SELFPAY ==
[2023-08-19 13:21] VITALS: BP 124/78; PULSE 89; O2SAT 96; BMI 29.0
--- NOTE | 2023-08-19 13:21 | A.OFFPC_ITS ---
Vital Signs 08/19/23 13:21 Height 5 ft 6 in Weight 180 lb BMI 29.0 BP 124/78 Blood Pressure Location Lt brachial Position Sitting Pulse 89 Pulse Source Pulse Oximeter Pulse Oximetry (%) 96 Oxygen Delivery Method Room Air Intake Visit Reasons: Per Dr Phan 1W F/U Allergies No Known Allergies [No Known Allergies*] Allergy (Verified 08/19/23 13:21) Tobacco use date assessed: 08/13/[address] Phan 1W F/U HPI Details Patient presents for the follow-up of acute bronchitis. The cough improved significantly but patient complains of dyspnea on exertion and constant anterior chest tightness worse with physical activity. Patient denies pleurisy positional chest pain fever chills PND orthopnea night sweats. She has been using albuterol inhaler up to 4 times a day with a good relief. Patient going course of prednisone taper and has been taking doxycycline PFSH Medical History Annual physical exam Depression Dysplastic nevi Elevated cholesterol Elevated LFTs Hyperlipidemia Hypertension KELLY (obstructive sleep apnea) Thyroid nodule Tinnitus Trochanteric bursitis of right hip Surgical History History of partial splenectomy History of surgery on right wrist Hx of hysterectomy Hx of cholecystectomy H/O esophagogastroduodenoscopy Hx of colonoscopy Family History Father Parkinsons Asbestos exposure Mother COPD (chronic obstructive pulmonary disease) Diabetes Social History Household Members: Spouse Housing: House Are you a primary out of school hours care worker to a significant other at home: No Do you presently have visiting nurse or other home services: No Alcohol intake: current Alcohol intake frequency: holidays/special occasions only Patient Tobacco Use Status: Former Tobacco user Quit Date: 2000 e-Cigarette/Vaping Use: Never Used Current occupational status: employed Cognitive needs: No Hearing needs: No Vision needs: Yes Questionnaire Thrive Questionnaire Date Thrive assessed: 08/13/23 CARA-7 AMB Questionnaire CARA-7 Date CARA - 7 assessed: 08/13/23 Source: Developed by Drs. Sunny Monk, Lou B.Sourav Jaeger and colleagues, with an educational moustapha from [employer]. Review of Systems Const All systems reviewed & are unremarkable except as noted in HPI and below Reports no additional complaints Eyes Reports no additional complaints ENT Reports no additional complaints Card Reports no additional complaints Resp Reports no additional complaints GI Reports no additional complaints Reports no additional complaints Physical exam (Primary Care) Vital Signs: Last Vital Signs Pulse 89 08/19/23 13:21 BP 124/78 08/19/23 13:21 Pulse Ox 96 08/19/23 13:21 Oxygen Delivery Method Room Air 08/19/23 13:21 BMI result Body Mass Index 29.0 Tobacco/Smoking Status: Tobacco use Status Tobacco use date assessed 08/13/23 08/19/23 13:22 Patient Tobacco Use Status Former Tobacco user 08/19/23 13:22 e-Cigarette/Vaping Use Never Used 08/19/23 13:22 Thrive Assessment: Date of Thrive Assessment Date Thrive assessed 08/13/23 08/19/23 13:22 Const General: no acute distress HENMT Head: Yes normal to inspection Face and sinus: Yes normal facial exam Neck Neck: Yes no lymphadenopathy and Yes supple Resp Effort & Inspection: normal respiratory effort Auscultation: clear to auscultation bilaterally Cardio Rhythm: regular rhythm Heart sounds: S1 normal heart sound present and S2 normal heart sound present GI Inspection: Yes normal to inspection Palpation (GI): Soft to palpation Assessment and Plan Assessment & Plan (1) Chest tightness: Code(s): R07.89 - Other chest pain Plan: EKG SHOWED NORMAL SINUS RHYTHM NO ST-T CHANGES, check chest x-ray basic labs including D-dimer and BNP. (2) Bronchitis: Code(s): J40 - Bronchitis, not specified as acute or chronic Plan: Continue doxycycline and albuterol as needed (3) Hypertension: Code(s): I10 - Essential (primary) hypertension Plan: Continue current medicationsc Orders: Orders B Type Natriuretic Peptide Today R07.89 - Other chest pain XR chest 1V Today D Dimer High Sensitivity Today R07.89 - Other chest pain Basic Metabolic Panel Today R07.89 - Other chest pain Complete Blood Count Auto Diff Today R07.89 - Other chest pain Coding Level of Care Code Est Pt Level 3 (38774) Diagnoses Chest tightness R07.89 Bronchitis J40 Hypertension I10
== END 2023-08-19 14:07 | disposition home or self-care (01) ==
PROVIDERS: PCP Internal Medicine; Visit Provider Internal Medicine
DX: R07.89 Other chest pain (principal); J40 Bronchitis, not specified as acute or chronic; I10 Essential (primary) hypertension
CPT/HCPCS: 99213

== ENCOUNTER 2023-08-19 14:08 | Outpatient (REF) | payer OTHER, SELFPAY ==
--- NOTE | ~2023-08-19 | XR_ITS ---
EXAMINATION: XR CHEST CLINICAL INFORMATION: Bronchitis COMPARISON: None available. TECHNIQUE: Frontal view of the chest was obtained. FINDINGS: The lungs are well-expanded with mild blunting of left CP angle from pleural effusion or thickening. No acute pneumonic process seen. There is likely minimal atelectasis left lung base. Heart size and pulmonary vascularity is normal. No gross bony abnormality seen. XR/XR chest 1V IMPRESSION: 1. Mild blunting of left CP angle from pleural effusion or thickening. 2. Minimal atelectasis left lung base.
[2023-08-19 15:55] LABS: MANUAL DIFF FLAG NO
[2023-08-19 16:01] LABS: Basophils Percent Auto 0.2 % (0-2); Hemoglobin 15.3 g/dl (12.0-16.0); Imm Gran Abs Auto 0.12 X10*3/uL (0.00-0.03); Imm Gran Pct Auto 0.8 % (0.0-0.4); Lymphocytes Absolute Auto 1.5 X10*3/uL (1.2-4.9); Lymphocytes Percent Auto 9.1 % (20-40); Mean Corpuscular Volume 94.1 fL (80.0-98.0); Mean Platelet Volume 10.6 fL (9.4-12.3); Monocytes Absolute Auto 1.2 X10*3/uL (0.1-1.2); Monocytes Percent Auto 7.3 % (2-11); Neutrophils Absolute Auto 13.1 x10*3/uL (2.0-8.3); Neutrophils Percent Auto 82.6 % (45-73); Platelet Count 332 X10*3/uL (160-400); Red Blood Count 4.78 X10*6/uL (4.20-5.50); Red Cell Distribution Width 13.2 % (11.0-16.0); White Blood Count 15.9 X10*3/uL (4.8-10.8)
[2023-08-19 16:33] LABS: Anion Gap 11 (12-20); Blood Urea Nitrogen 19 mg/dL (9-16); Calcium 9.1 mg/dL (8.4-10.2); Carbon Dioxide 24 mmol/L (22-29); Chloride 107 mmol/L (96-108); Estimated Glomerular Filt Rate > 60; Glucose Random 105 mg/dL (60-115); Potassium 4.2 mmol/L (3.3-5.1); Sodium 138 mmol/L (135-145)
[2023-08-19 16:37] LABS: B Type Natriuretic Peptide 70 pg/mL (<100)
[2023-08-20 07:50] LABS: D Dimer High Sensitivity 340 NG/ML
== END 2023-08-19 14:09 | disposition home or self-care (01) ==
LOC: HO.HMGCX 14:08
PROVIDERS: PCP Internal Medicine; Visit Provider Internal Medicine
DX: R07.89 Other chest pain (principal)
CPT/HCPCS: 36415; 71045; 80048; 83880; 85025; 85379

== ENCOUNTER 2023-11-05 12:41 | Outpatient (REF) | payer OTHER, SELFPAY ==
--- NOTE | ~2023-11-05 | MM_ITS ---
EXAMINATION: BONE DENSITOMETRY CLINICAL INDICATION: Screening. COMPARISON: This is the patient's baseline examination. TECHNIQUE: Using a [employer] DXA System (software version: 13.1) manufactured by [employer], dual-energy x-ray absorptiometry was performed of the lumbar spine and left hip. The images are of good technical quality. Summary results are attached. FINDINGS: LEFT FEMUR, NECK: BMD 0.820 g/cm2, Z-score -0.5, T-score -1.6, osteopenia. LEFT FEMUR, TOTAL: BMD 0.909 g/cm2, Z-score 0.0, T-score -0.8, normal. AP SPINE L1-L4: BMD 1.014 g/cm2, Z-score -0.4, T-score -1.4, osteopenia. IDENTIFIED RISK FACTORS: Early menopause, history of fracture (adult), bilateral oophorectomy, hysterectomy, secondary osteoporosis. HISTORY OF FRACTURE: Wrist. MEDICATIONS: None listed. MM/XR DEXA axial skeleton IMPRESSION: 1. DIAGNOSIS: Osteopenia based on the lowest T-score value of -1.6 in the femoral neck applying World Health Organization criteria. 2. 10-YEAR FRACTURE RISK PREDICTION, FRAX: Major osteoporotic fracture (clinical spine, forearm, hip or shoulder) 14.7%. Hip fracture 1.6%. 3. Treatment Recommendations: NOF guidelines recommend consideration for treatment in postmenopausal women and men age 50 and older presenting with the following: -A hip or vertebral (clinical or morphometric) fracture. -T-score less than or equal to -2.5 at the femoral neck or spine after appropriate evaluation to exclude secondary causes. -Low bone mass at the hip or spine and a 10-year fracture probability by FRAX of greater than or equal to 3% for hip fracture or greater than or equal to 20% for major osteoporotic fracture based on the [place] adapted WHO algorithm. 4. Other Recommendations: All treatment decisions require clinical judgment and consideration of individual patient factors, including patient preferences, comorbidities, previous drug use, risk factors not captured in the FRAX model (e.g. frailty, falls, vitamin D deficiency, increased bone turnover, interval significant decline in bone density) and possible under or overestimation of fracture risk by FRAX. Additional medical evaluation for secondary cause of low bone mineral density may be appropriate. FUTURE SCAN RECOMMENDATION: People with diagnosed cases of osteoporosis or at high risk for fracture should have regular bone mineral density tests. For patients eligible for Medicare, routine testing is allowed once every 2 years. The testing frequency can be increased to one year for patients who have rapidly progressing disease, those who are receiving or discontinuing medical therapy to restore bone mass, or have additional risk factors.
== END 2023-11-05 12:42 | disposition home or self-care (01) ==
LOC: HO.MAMMO 12:41
PROVIDERS: PCP Internal Medicine; Visit Provider Internal Medicine
DX: Z12.31 Encounter for screening mammogram for malignant neoplasm of breast (principal); Z13.820 Encounter for screening for osteoporosis; Z78.0 Asymptomatic menopausal state
CPT/HCPCS: 77063; 77067; 77080

== ENCOUNTER → 2023-11-05 13:00 | Outpatient (BNV) | payer OTHER, SELFPAY | PROVIDERS: PCP Internal Medicine; Visit Provider Radiology Diagnostic Radiology | DX: Z12.31 Encounter for screening mammogram for malignant neoplasm of breast (principal) | CPT/HCPCS: 77063; 77067 ==

== ENCOUNTER 2023-12-10 11:08 | Outpatient (AMB) | payer OTHER, SELFPAY ==
[2023-12-10 11:20] VITALS: BP 120/62; PULSE 82; O2SAT 98
--- NOTE | 2023-12-10 11:20 | A.OFFPC_ITS ---
Vital Signs 12/10/23 11:20 Height 5 ft 6 in Weight 186 lb BMI 30.0 BP 120/62 Blood Pressure Location Rt brachial Position Sitting Pulse 82 Pulse Source Pulse Oximeter Pulse Oximetry (%) 98 Oxygen Delivery Method Room Air Intake Visit Reasons: 6 Month F/U Intake Note: Xenia is here today for 6 months follow up visit. Allergies No Known Allergies [No Known Allergies*] Allergy (Verified 08/19/23 13:21) Medication List - Last Reconciled 12/10/23 by Crissy Phan MD acetaminophen 1,000 mg (2 x 500 mg) PO Q6H PRN albuterol sulfate 90 mcg/actuation 2 puffs inhalation Q4-6H PRN albuterol sulfate 0.63 mg (3 mL) inhalation QID PRN amlodipine-olmesartan 10-40 mg 1 tab PO DAILY cholestyramine (with sugar) 4 gram 4 g p.o. b.i.d. dissolved in water; PO; 30 days esomeprazole magnesium 40 mg PO DAILY nebulizers As directed paroxetine HCl 40 mg PO DAILY rosuvastatin 20 mg PO DAILY Tobacco use date assessed: 12/10/23 Dental Screening Dental Screen Date: 08/13/23 HPI 6 Month F/U HPI Details Pt presents for f/u HTN and hyperlipid, stable on meds. [facility] Medical History Dysplastic nevi Tinnitus Elevated LFTs Hyperlipidemia Annual physical exam Trochanteric bursitis of right hip Elevated cholesterol Thyroid nodule Depression KELLY (obstructive sleep apnea) Hypertension Surgical History History of partial splenectomy History of surgery on right wrist Hx of hysterectomy Hx of cholecystectomy H/O esophagogastroduodenoscopy Hx of colonoscopy Family History Father Parkinsons Asbestos exposure Mother COPD (chronic obstructive pulmonary disease) Diabetes Social History Household Members: Spouse Housing: House Are you a primary summer child caregiver to a significant other at home: No Do you presently have visiting nurse or other home services: No Alcohol intake: current Alcohol intake frequency: holidays/special occasions only Patient Tobacco Use Status: Former Tobacco user e-Cigarette/Vaping Use: Never Used service: No Current occupational status: employed Cognitive needs: No Hearing needs: No Vision needs: Yes Questionnaire Thrive Questionnaire Date Thrive assessed: 08/13/23 AUDIT C Alcohol Use Questionnaire (AUDIT-C) 1. How often do you have a drink containing alcohol?: Monthly or less 2. How many drinks containing alcohol do you have on a typical day when you are drinking?: 1 or 2 3. How often do you have six or more drinks on one occasion?: Never Total Score: 1 CARA-7 AMB Questionnaire CARA-7 Date CARA - 7 assessed: 08/13/23 Source: Developed by Drs. Sunny Monk, Lou Pinto, Sourav Ott and colleagues, with an educational moustapha from [employer]. Review of Systems Const All systems reviewed & are unremarkable except as noted in HPI and below Eyes Reports no additional complaints ENT Reports no additional complaints Card Reports no additional complaints Resp Reports no additional complaints GI Reports no additional complaints Reports no additional complaints Physical exam (Primary Care) Vital Signs: Last Vital Signs Pulse 82 12/10/23 11:20 BP 120/62 12/10/23 11:20 Pulse Ox 98 12/10/23 11:20 Oxygen Delivery Method Room Air 12/10/23 11:20 BMI result Body Mass Index 30.0 Tobacco/Smoking Status: Tobacco use Status Tobacco use date assessed 12/10/23 12/10/23 11:35 Patient Tobacco Use Status Former Tobacco user 12/10/23 11:25 e-Cigarette/Vaping Use Never Used 12/10/23 11:25 Thrive Assessment: Date of Thrive Assessment Date Thrive assessed 08/13/23 12/10/23 11:25 Const General: no acute distress HENMT Head: Yes normal to inspection Ears: hearing grossly normal bilaterally Face and sinus: Yes normal facial exam Eyes General: appearance normal, both eyes and all related structures Neck Neck: Yes supple Resp Effort & Inspection: normal respiratory effort Auscultation: clear to auscultation bilaterally Cardio Rhythm: regular rhythm Heart sounds: S1 normal heart sound present and S2 normal heart sound present GI Inspection: Yes normal to inspection Palpation (GI): Soft to palpation Percussion: Yes normal to percussion Auscultation: normal bowel sounds Assessment and Plan Assessment & Plan (1) Hypertension: Code(s): I10 - Essential (primary) hypertension Plan: cont meds (2) Hyperglycemia: Code(s): R73.9 - Hyperglycemia, unspecified Plan: ADA diet, increase exercise discussed (3) Hyperlipidemia: Comment: cont statin Code(s): E78.5 - Hyperlipidemia, unspecified Plan: cont Crestor Orders: Orders Comprehensive [place]. Panel Fast Today I10 - Essential (primary) hypertension, R73.9 - Hyperglycemia, unspecified Complete Blood Count Auto Diff 6 Months I10 - Essential (primary) hypertension, L03.012 - Cellulitis of left finger, R73.9 - Hyperglycemia, unspecified Hemoglobin A1c 6 Months I10 - Essential (primary) hypertension, L03.012 - Cellulitis of left finger, R73.9 - Hyperglycemia, unspecified Vitamin D 25-OH Total 6 Months I10 - Essential (primary) hypertension, L03.012 - Cellulitis of left finger, R73.9 - Hyperglycemia, unspecified Lipid Panel Today I10 - Essential (primary) hypertension, R73.9 - Hyperglycemia, unspecified Hemoglobin A1c Today I10 - Essential (primary) hypertension, R73.9 - Hyperglycemia, unspecified Comprehensive [place]. Panel Fast 6 Months I10 - Essential (primary) hypertension, L03.012 - Cellulitis of left finger, R73.9 - Hyperglycemia, unspecified Lipid Panel 6 Months I10 - Essential (primary) hypertension, L03.012 - Cellulitis of left finger, R73.9 - Hyperglycemia, unspecified Microalbumin, Random (w Creat) 6 Months I10 - Essential (primary) hypertension, L03.012 - Cellulitis of left finger, R73.9 - Hyperglycemia, unspecified TSH reflex Free T4 6 Months I10 - Essential (primary) hypertension, L03.012 - Cellulitis of left finger, R73.9 - Hyperglycemia, unspecified Medications: New rosuvastatin (Crestor) 10 mg PO DAILY 90 tabs 3RF Discontinued rosuvastatin Discontinued Reason: Doctor's Order 20 mg PO DAILY 90 tabs 3RF Coding Level of Care Code Est Pt Level 4 (72183) Diagnoses Hypertension I10 Hyperglycemia R73.9 Hyperlipidemia E78.5
== END 2023-12-10 11:59 | disposition home or self-care (01) ==
PROVIDERS: PCP Internal Medicine; Visit Provider Internal Medicine
DX: I10 Essential (primary) hypertension (principal); R73.9 Hyperglycemia, unspecified; E78.5 Hyperlipidemia, unspecified
CPT/HCPCS: 99214

== ENCOUNTER 2024-01-11 13:25 | Outpatient (AMB) | payer OTHER, SELFPAY ==
--- NOTE | 2024-01-11 13:33 | A.OFFPC_ITS ---
Vital Signs 01/11/24 13:34 Height 5 ft 6 in Weight 180 lb BMI 29.0 BP 138/84 Blood Pressure Location Rt brachial Position Sitting Pulse 92 Pulse Source Pulse Oximeter Pulse Oximetry (%) 98 Oxygen Delivery Method Room Air Intake Visit Reasons: Bronchitis Intake Note: pt is here for bronchitis Allergies No Known Allergies [No Known Allergies*] Allergy (Verified 01/11/24 13:33) Medication List - Last Reconciled 01/11/24 by Crissy Phan MD acetaminophen 1,000 mg (2 x 500 mg) PO Q6H PRN albuterol sulfate 90 mcg/actuation 2 puffs inhalation Q4-6H PRN albuterol sulfate 0.63 mg (3 mL) inhalation QID PRN amlodipine-olmesartan 10-40 mg 1 tab PO DAILY cholestyramine (with sugar) 4 gram 4 g p.o. b.i.d. dissolved in water; PO; 30 days esomeprazole magnesium 40 mg PO DAILY nebulizers As directed paroxetine HCl 40 mg PO DAILY rosuvastatin (Crestor) 10 mg PO DAILY Tobacco use date assessed: 01/11/24 Dental Screening Dental Screen Date: 08/13/23 HPI Bronchitis HPI Details Pt complains of productive cough wheezing shortness for breath body aches for 4 days. PFSH Medical History Dysplastic nevi Tinnitus Elevated LFTs Hyperlipidemia Annual physical exam Trochanteric bursitis of right hip Elevated cholesterol Thyroid nodule Depression KELLY (obstructive sleep apnea) Hypertension Surgical History History of partial splenectomy History of surgery on right wrist Hx of hysterectomy Hx of cholecystectomy H/O esophagogastroduodenoscopy Hx of colonoscopy Family History Father Parkinsons Asbestos exposure Mother COPD (chronic obstructive pulmonary disease) Diabetes Social History Household Members: Spouse Housing: House Are you a primary personal care attendant to a significant other at home: No Do you presently have visiting nurse or other home services: No Alcohol intake: current Alcohol intake frequency: holidays/special occasions only Patient Tobacco Use Status: Former Tobacco user e-Cigarette/Vaping Use: Never Used [employer] service: No Current occupational status: employed Cognitive needs: No Hearing needs: No Vision needs: Yes Questionnaire Thrive Questionnaire Date Thrive assessed: 08/13/23 CARA-7 AMB Questionnaire CARA-7 Date CARA - 7 assessed: 08/13/23 Source: Developed by Drs. Sunny Monk, Lou Pinto, Sourav Ott and colleagues, with an educational moustapha from [email or web address]. Review of Systems Const All systems reviewed & are unremarkable except as noted in HPI and below ENT Reports no additional complaints Card Reports no additional complaints Resp Reports no additional complaints GI Reports no additional complaints Physical exam (Primary Care) Vital Signs: Last Vital Signs Pulse 92 01/11/24 13:34 BP 138/84 01/11/24 13:34 Pulse Ox 98 01/11/24 13:34 Oxygen Delivery Method Room Air 01/11/24 13:34 BMI result Body Mass Index 29.0 Tobacco/Smoking Status: Tobacco use Status Tobacco use date assessed 01/11/24 01/11/24 13:37 Patient Tobacco Use Status Former Tobacco user 01/11/24 13:37 e-Cigarette/Vaping Use Never Used 01/11/24 13:37 Thrive Assessment: Date of Thrive Assessment Date Thrive assessed 08/13/23 01/11/24 13:37 Const General: no acute distress HENMT Head: Yes normal to inspection Ears: hearing grossly normal bilaterally Face and sinus: Yes normal facial exam Neck Neck: Yes supple Resp Effort & Inspection: able to speak in complete sentences Auscultation: wheezes and diminished lung sounds Cardio Rhythm: regular rhythm Heart sounds: S1 normal heart sound present and S2 normal heart sound present GI Inspection: Yes normal to inspection Palpation (GI): Soft to palpation Office Procedures Nebulizer Treatment Nebulizer Treatment 08180-Kswmhgppl/MDI RX initial, or Nebulizer Subsequent Treatment Office Meds albuterol sulfate 2.5 mg/3 mL (0.083 %) solution for nebulization Performing Provider: Crissy Phan MD Performing Location: [facility] Administered by: Monika Lanza RN on 01/11/24 14:19 Dose Route Admin Location Dispensed Lot Number Expiration Date 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 q.d. for 3 days then 3 tablets p.o. q.d. for 3 days then 2 tablets p.o. q.d. for 3 days then 1 tablet p.o. q.d. for 3 days 30 tabs 0RF doxycycline hyclate 100 mg PO BID 20 tabs 0RF Refilled albuterol sulfate 0.63 mg (3 mL) inhalation QID PRN 180 mL 0RF shortness of breath or wheezing Coding Level of Care Code Est Pt Level 3 (22305) Diagnoses Bronchitis J40 CPT Codes Nebulizer Treatment - Nebulizer Treatment, initial or subsequent: 96097- Nebulizer/MDI RX initial, or Nebulizer Subsequent Treatment ([id number])
[2024-01-11 13:34] VITALS: BP 138/84; PULSE 92; O2SAT 98; BMI 29.0
== END 2024-01-11 14:41 | disposition home or self-care (01) ==
PROVIDERS: PCP Internal Medicine; Visit Provider Internal Medicine
DX: J40 Bronchitis, not specified as acute or chronic (principal)
CPT/HCPCS: 94640; 99213; J7613

== ENCOUNTER 2024-01-19 13:40 | Outpatient (AMB) | payer OTHER, SELFPAY ==
[2024-01-19 13:52] VITALS: BP 122/80; PULSE 89; O2SAT 98; BMI 28.2
--- NOTE | 2024-01-19 13:52 | A.OFFPC_ITS ---
Vital Signs 01/19/24 13:52 Height 5 ft 6 in Weight 175 lb BMI 28.2 BP 122/80 Blood Pressure Location Rt brachial Position Sitting Pulse 89 Pulse Source Pulse Oximeter Pulse Oximetry (%) 98 Oxygen Delivery Method Room Air Intake Visit Reasons: 1 week follow up Intake Note: Pt is here today for 1 week follow up visit on bronchitis. Allergies No Known Allergies [No Known Allergies*] Allergy (Verified 01/19/24 14:09) Medication List - Last Reconciled 01/19/24 by Crissy Phan MD acetaminophen 1,000 mg (2 x 500 mg) PO Q6H PRN albuterol sulfate 90 mcg/actuation 2 puffs inhalation Q4-6H PRN albuterol sulfate 0.63 mg (3 mL) inhalation QID PRN amlodipine-olmesartan 10-40 mg 1 tab PO DAILY cholestyramine (with sugar) 4 gram 4 g p.o. b.i.d. dissolved in water; PO; 30 days doxycycline hyclate 100 mg PO BID esomeprazole magnesium 40 mg PO DAILY nebulizers As directed paroxetine HCl 40 mg PO DAILY prednisone Four tablets p.o. q.d. for 3 days then 3 tablets p.o. q.d. for 3 days then 2 tablets p.o. q.d. for 3 days then 1 tablet p.o. q.d. for 3 days rosuvastatin (Crestor) 10 mg PO DAILY Tobacco use date assessed: 01/11/24 Dental Screening Dental Screen Date: 08/13/23 HPI 1 week follow up HPI Details Patient presents for the follow-up. She still complains of productive cough wheezing shortness of breath but denies fever chills pleurisy. [facility] Medical History Dysplastic nevi Tinnitus Elevated LFTs Hyperlipidemia Annual physical exam Trochanteric bursitis of right hip Elevated cholesterol Thyroid nodule Depression KELLY (obstructive sleep apnea) Hypertension Surgical History History of partial splenectomy History of surgery on right wrist Hx of hysterectomy Hx of cholecystectomy H/O esophagogastroduodenoscopy Hx of colonoscopy Family History Father Parkinsons Asbestos exposure Mother COPD (chronic obstructive pulmonary disease) Diabetes Social History Household Members: Spouse Housing: House Are you a primary acute care nurse practitioner to a significant other at home: No Do you presently have visiting nurse or other home services: No Alcohol intake: current Alcohol intake frequency: holidays/special occasions only Patient Tobacco Use Status: Former Tobacco user e-Cigarette/Vaping Use: Never Used service: No Current occupational status: employed Cognitive needs: No Hearing needs: No Vision needs: Yes Questionnaire PHQ-9 Over the last 2 weeks, how often have you been bothered by any of the following problems? 1. Little interest or pleasure in doing things: not at all 2. Feeling down, depressed, or hopeless: not at all 3. Trouble falling or staying asleep, or sleeping too much: not at all 4. Feeling tired or having little energy: not at all 5. Poor appetite or overeating: not at all 6. Feeling bad about yourself - or that you are a failure or have let yourself or your family down: not at all 7. Trouble concentrating on things, such as reading the newspaper or watching television: not at all 8. Moving or speaking so slowly that other people could have noticed. Or the opposite - being so fidgety or restless that you have been moving around a lot more than usual: not at all 9. Thoughts that you would be better off or of hurting yourself in some way: not at all Total score: 0 Depression Screening Interpretation: Negative Depression Screening Done: Yes Source: Developed by Drs. Sunny Monk, Lou Pinto, Sourav Ott and colleagues, with an educational moustapha from [email or web address]. Thrive Questionnaire Date Thrive assessed: 01/19/24 I am a: Patient What is your living situation today?: I have a steady place to live Within the past 12 months, did the food you bought not last and you didn't have the money to get more?: Never true Within the past 12 months, did you worry whether your food would run out before you got money to buy more?: Never true Do you have trouble paying for medicines?: No Do you have trouble getting transportation to medical appointments?: No Do you have trouble paying your heating and electricity bill?: No Do you have trouble taking care of your child, family member or friend?: No Do you have trouble with day-to-day activities such as bathing, preparing meals, shopping, managing finances, etc.?: No Are you currently unemployed and looking for a job?: No Are you interested in more education?: No Please select the resources that you would like help with: Housing/Halfway Currently or been in a relationship where the following occur: No concerns reported THRIVE Score: 0 AUDIT C Alcohol Use Questionnaire (AUDIT-C) 1. How often do you have a drink containing alcohol?: 2-4 times a month 2. How many drinks containing alcohol do you have on a typical day when you are drinking?: 1 or 2 3. How often do you have six or more drinks on one occasion?: Less than monthly Total Score: 3 CARA-7 AMB Questionnaire CARA-7 Date CARA - 7 assessed: 01/19/24 Feeling nervous, anxious, or on edge: 0 = Not at all Not being able to stop or control worryin = Not at all Worrying too much about different things: 0 = Not at all Trouble relaxin = Not at all Being so restless that it is hard to sit still: 0 = Not at all Becoming easily annoyed or irritable: 0 = Not at all Feeling afraid as if something awful might happen: 0 = Not at all Total CARA-7 score (0-4 normal; 5-9 mild; 10-14 moderate; 15-21 severe): 0 Source: Developed by Drs. Sunny Monk, Lou Pinto, Sourav Ott and colleagues, with an educational moustapha from [email or web address]. Review of Systems Const All systems reviewed & are unremarkable except as noted in HPI and below Eyes Reports no additional complaints ENT Reports no additional complaints Card Reports no additional complaints Resp Reports no additional complaints GI Reports no additional complaints Reports no additional complaints Physical exam (Primary Care) Vital Signs: Last Vital Signs Pulse 89 01/19/24 13:52 BP 122/80 01/19/24 13:52 Pulse Ox 98 01/19/24 13:52 Oxygen Delivery Method Room Air 01/19/24 13:52 BMI result Body Mass Index 28.2 Tobacco/Smoking Status: Tobacco use Status Tobacco use date assessed 01/11/24 01/19/24 13:52 Patient Tobacco Use Status Former Tobacco user 01/19/24 13:52 e-Cigarette/Vaping Use Never Used 01/19/24 13:52 PHQ-9: PHQ-9 Score PHQ-9: Total score 0 01/19/24 14:13 Depression Screening Interpretation: Negative Thrive Assessment: Date of Thrive Assessment Date Thrive assessed 01/19/24 01/19/24 14:13 Currently or been in a relationship where the following occur: No concerns reported Const General: no acute distress HENMT Head: Yes normal to inspection Face and sinus: Yes normal facial exam Eyes General: appearance normal, both eyes and all related structures Resp Effort & Inspection: able to speak in complete sentences Auscultation: wheezes and diminished lung sounds Cardio Rhythm: regular rhythm Heart sounds: S1 normal heart sound present and S2 normal heart sound present Assessment and Plan Assessment & Plan (1) Cough: Code(s): R05.9 - Cough, unspecified Plan: Check chest x-ray, add cefuroxime and increase prednisone to 50 mg daily for 5 days then followed by a slow taper. Continue albuterol nebulized every 4-6 hours as needed follow-up in 1 week Orders: Orders XR chest 1V Today R05.9 - Cough, unspecified Medications: New prednisone 50 mg PO DAILY 5 tabs 0RF cefuroxime axetil 500 mg PO BID 14 tabs 0RF Refilled doxycycline hyclate 100 mg PO BID 10 tabs 0RF Coding Level of Care Code Est Pt Level 3 (40580) Diagnoses Cough R05.9
== END 2024-01-19 14:29 | disposition home or self-care (01) ==
PROVIDERS: PCP Internal Medicine; Visit Provider Internal Medicine
DX: R05.9 Cough, unspecified (principal)
CPT/HCPCS: 99213

== ENCOUNTER 2024-01-19 14:34 | Outpatient (REF) | payer OTHER, SELFPAY ==
--- NOTE | ~2024-01-19 | XR_ITS ---
EXAMINATION: XR CHEST CLINICAL INFORMATION: Comment COMPARISON: 08/19/2023 TECHNIQUE: Chest PA and lateral views FINDINGS: Lungs are clear. Cardiomediastinal silhouette is normal. There is blunting of left costophrenic angle without infiltrates or pleural effusion postsurgical agustin seen in the left upper quadrant. XR/XR chest 2V IMPRESSION: No active cardiopulmonary disease
== END 2024-01-19 14:35 | disposition home or self-care (01) ==
LOC: HO.HMGCX 14:34
PROVIDERS: PCP Internal Medicine; Visit Provider Internal Medicine
DX: R05.9 Cough, unspecified (principal)
CPT/HCPCS: 71046

== ENCOUNTER 2024-01-27 06:41 | Outpatient (REF) | payer OTHER, SELFPAY ==
[2024-01-27 11:12] LABS: Estimated Average Glucose 120 mg/dL; Hemoglobin A1c % 5.8 % (<6.0)
[2024-01-27 11:13] LABS: Alanine Aminotransferase 61 U/L (0-31); Albumin Level 3.7 g/dL (3.5-5.0); Alkaline Phosphatase 91 U/L (39-117); Anion Gap 14 (12-20); Aspartate Amino Transferase 26 U/L (5-31); Bilirubin Total 0.8 mg/dL (0.0-1.0); Blood Urea Nitrogen 19 mg/dL (9-16); Calcium 8.9 mg/dL (8.4-10.2); Carbon Dioxide 24 mmol/L (22-29); Chloride 106 mmol/L (96-108); Cholesterol 135 mg/dL (<200); Estimated Glomerular Filt Rate > 60; Glucose Fasting 97 mg/dL (60-99); HDL Cholesterol 45 mg/dL (>40); LDL Cholesterol Calculated 63 mg/dL (<100); Sodium 140 mmol/L (135-145); Total Protein 6.2 g/dL (6.5-8.0); Triglycerides 135 mg/dL (<150)
== END 2024-01-27 06:42 | disposition home or self-care (01) ==
LOC: HO.HMGCLDS 06:41
PROVIDERS: PCP Internal Medicine; Visit Provider Internal Medicine
DX: I10 Essential (primary) hypertension (principal); R73.9 Hyperglycemia, unspecified
CPT/HCPCS: 36415; 80053; 80061; 83036

== ENCOUNTER 2024-01-28 13:25 | Outpatient (AMB) | payer OTHER, SELFPAY ==
--- NOTE | 2024-01-28 13:46 | MHC.PC.OV ---
Vital Signs 01/28/24 13:47 Height 5 ft 6 in Weight 175 lb BMI 28.2 BP 124/74 Blood Pressure Location Lt brachial Position Sitting Pulse 94 Pulse Source Pulse Oximeter Pulse Oximetry (%) 97 Oxygen Delivery Method Room Air Intake Visit Reasons: 1WK F/U Intake Note: Pt is here today for 1 week follow up visit. Allergies No Known Allergies [No Known Allergies*] Allergy (Verified 01/19/24 14:09) Medication List - Last Reconciled 01/28/24 by Crissy Phan MD acetaminophen 1,000 mg (2 x 500 mg) PO Q6H PRN albuterol sulfate 90 mcg/actuation 2 puffs inhalation Q4-6H PRN albuterol sulfate 0.63 mg (3 mL) inhalation QID PRN amlodipine-olmesartan 10-40 mg 1 tab PO DAILY cholestyramine (with sugar) 4 gram 4 g p.o. b.i.d. dissolved in water; PO; 30 days esomeprazole magnesium 40 mg PO DAILY nebulizers As directed paroxetine HCl 40 mg PO DAILY rosuvastatin (Crestor) 10 mg PO DAILY Tobacco use date assessed: 01/11/24 Dental Screening Dental Screen Date: 08/13/23 HPI 1WK F/U HPI Details Pt presents for f/u acute bronchitis getting better. Cough resolved. Pt's stopped smoking in the house [facility] Medical History Dysplastic nevi Tinnitus Elevated LFTs Hyperlipidemia Annual physical exam Trochanteric bursitis of right hip Elevated cholesterol Thyroid nodule Depression KELLY (obstructive sleep apnea) Hypertension Surgical History History of partial splenectomy History of surgery on right wrist Hx of hysterectomy Hx of cholecystectomy H/O esophagogastroduodenoscopy Hx of colonoscopy Family History Father Parkinsons Asbestos exposure Mother COPD (chronic obstructive pulmonary disease) Diabetes Social History Household Members: Spouse Housing: House Are you a primary care transition coordinator to a significant other at home: No Do you presently have visiting nurse or other home services: No Alcohol intake: current Alcohol intake frequency: holidays/special occasions only Patient Tobacco Use Status: Former Tobacco user e-Cigarette/Vaping Use: Never Used service: No Current occupational status: employed Cognitive needs: No Hearing needs: No Vision needs: Yes Questionnaire PHQ-9 Over the last 2 weeks, how often have you been bothered by any of the following problems? 3. Trouble falling or staying asleep, or sleeping too much: not at all 4. Feeling tired or having little energy: several days 5. Poor appetite or overeating: not at all 6. Feeling bad about yourself - or that you are a failure or have let yourself or your family down: not at all 7. Trouble concentrating on things, such as reading the newspaper or watching television: not at all 8. Moving or speaking so slowly that other people could have noticed. Or the opposite - being so fidgety or restless that you have been moving around a lot more than usual: not at all 9. Thoughts that you would be better off or of hurting yourself in some way: not at all Source: Developed by Drs. Sunny Monk, Lou Pinto, Sourav Ott and colleagues, with an educational moustapha from [employer]. Thrive Questionnaire Date Thrive assessed: 01/19/24 I am a: Patient What is your living situation today?: I have a steady place to live Within the past 12 months, did the food you bought not last and you didn't have the money to get more?: Never true Within the past 12 months, did you worry whether your food would run out before you got money to buy more?: Never true Do you have trouble paying for medicines?: No Do you have trouble getting transportation to medical appointments?: No Do you have trouble paying your heating and electricity bill?: No Do you have trouble taking care of your child, family member or friend?: No Do you have trouble with day-to-day activities such as bathing, preparing meals, shopping, managing finances, etc.?: No Are you currently unemployed and looking for a job?: No Are you interested in more education?: No Please select the resources that you would like help with: Housing/Skilled Nursing Currently or been in a relationship where the following occur: No concerns reported THRIVE Score: 0 AUDIT C Alcohol Use Questionnaire (AUDIT-C) 1. How often do you have a drink containing alcohol?: 2-4 times a month 2. How many drinks containing alcohol do you have on a typical day when you are drinking?: 1 or 2 3. How often do you have six or more drinks on one occasion?: Less than monthly Total Score: 3 CARA-7 AMB Questionnaire CARA-7 Date CARA - 7 assessed: 01/19/24 Feeling nervous, anxious, or on edge: 0 = Not at all Not being able to stop or control worryin = Not at all Worrying too much about different things: 0 = Not at all Trouble relaxin = Not at all Being so restless that it is hard to sit still: 0 = Not at all Becoming easily annoyed or irritable: 0 = Not at all Feeling afraid as if something awful might happen: 0 = Not at all Total CARA-7 score (0-4 normal; 5-9 mild; 10-14 moderate; 15-21 severe): 0 Source: Developed by Drs. Sunny Monk, Lou Pinto, Sourav Ott and colleagues, with an educational moustapha from [employer]. Review of Systems Const All systems reviewed & are unremarkable except as noted in HPI and below ENT Reports no additional complaints Card Reports no additional complaints Resp Reports no additional complaints GI Reports no additional complaints Reports no additional complaints Physical exam (Primary Care) Vital Signs: Last Vital Signs Pulse 94 01/28/24 13:47 BP 124/74 01/28/24 13:47 Pulse Ox 97 01/28/24 13:47 Oxygen Delivery Method Room Air 01/28/24 13:47 BMI result Body Mass Index 28.2 Tobacco/Smoking Status: Tobacco use Status Tobacco use date assessed 01/11/24 01/28/24 13:47 Patient Tobacco Use Status Former Tobacco user 01/28/24 13:47 e-Cigarette/Vaping Use Never Used 01/28/24 13:47 Thrive Assessment: Date of Thrive Assessment Date Thrive assessed 01/19/24 01/28/24 13:47 Currently or been in a relationship where the following occur: No concerns reported Const General: no acute distress HENMT Mouth: Normal oral and palatal mucosa present Eyes General: appearance normal, both eyes and all related structures Chest Chest palpation & inspection: normal inspection of the chest Resp Effort & Inspection: normal respiratory effort Auscultation: clear to auscultation bilaterally Cardio Rhythm: regular rhythm Heart sounds: S1 normal heart sound present and S2 normal heart sound present Assessment and Plan Assessment & Plan (1) Bronchitis: Code(s): J40 - Bronchitis, not specified as acute or chronic Plan: resolved, check PFT (2) Asthma: Code(s): J45.909 - Unspecified asthma, uncomplicated (3) Dysplastic nevi: Comment: RLE dysplastic nevus Code(s): D23.9 - Other benign neoplasm of skin, unspecified Plan: refer to [facility] Orders: Orders PFT pulmonary function test Today J40 - Bronchitis, not specified as acute or chronic, J45.909 - Unspecified asthma, uncomplicated Referrals Dermatology Referral D23.9 - Other benign neoplasm of skin, unspecified Coding Level of Care Code Est Pt Level 3 (86777) Diagnoses Bronchitis J40 Asthma J45.909 Dysplastic nevi D23.9
[2024-01-28 13:47] VITALS: BP 124/74; PULSE 94; O2SAT 97; BMI 28.2
== END 2024-01-28 16:17 | disposition home or self-care (01) ==
PROVIDERS: PCP Internal Medicine; Visit Provider Internal Medicine
DX: J40 Bronchitis, not specified as acute or chronic (principal); J45.909 Unspecified asthma, uncomplicated; D23.9 Other benign neoplasm of skin, unspecified
CPT/HCPCS: 99213

== ENCOUNTER 2024-06-06 10:56 | Outpatient (AMB) | payer OTHER, SELFPAY ==
--- NOTE | 2024-06-06 11:25 | A.OFFPC_ITS ---
Vital Signs 06/06/24 11:26 Height 5 ft 6 in Weight 181 lb 4 oz BMI 29.3 BP 132/80 Blood Pressure Location Rt brachial Position Sitting Pulse 76 Pulse Source Pulse Oximeter Pulse Oximetry (%) 96 Oxygen Delivery Method Room Air Intake Visit Reasons: annual physical Intake Note: Pt is here today for her Annual Physical. Allergies No Known Allergies [No Known Allergies*] Allergy (Verified 06/06/24 11:40) Medication List - Last Reconciled 06/06/24 by Crissy Phan MD acetaminophen 1,000 mg (2 x 500 mg) PO Q6H PRN albuterol sulfate 90 mcg/actuation 2 puffs inhalation Q4-6H PRN albuterol sulfate 0.63 mg (3 mL) inhalation QID PRN amlodipine-olmesartan 10-40 mg 1 tab PO DAILY cholestyramine (with sugar) 4 gram 4 g p.o. b.i.d. dissolved in water; PO; 30 days esomeprazole magnesium 40 mg PO DAILY nebulizers As directed paroxetine HCl 40 mg PO DAILY rosuvastatin (Crestor) 10 mg PO DAILY Tobacco use date assessed: 06/06/24 Fall risk assessment: No Falls in past year Last assessed Fall Risk: 06/06/24 Dental Screening Dental Screen Date: 06/06/24 Did you have a dental visit in the last 12 months?: Yes Did you have a dental problem in the last 6 months where you did not have access to dental care?: No Was dental information given to patient?: Patient has dentist HPI annual physical HPI Details Pt presents for PE. Patient complains of intermittent left flank pain feels like a pressure occasionally positional on and off for few months. She denies dysuria hematuria, change in bowel habits, radiation of the pain to extremities or abdomen. Patient complains of intermittent feeling of pressure on the top of her head when stressing out or work with some lightheadedness but no change in vision, chest pain or shortness a breath. [facility] Medical History Dysplastic nevi Tinnitus Elevated LFTs Hyperlipidemia Annual physical exam Trochanteric bursitis of right hip Elevated cholesterol Thyroid nodule Depression KELLY (obstructive sleep apnea) Hypertension Surgical History History of partial splenectomy History of surgery on right wrist Hx of hysterectomy Hx of cholecystectomy H/O esophagogastroduodenoscopy Hx of colonoscopy Family History Father Parkinsons Asbestos exposure Mother COPD (chronic obstructive pulmonary disease) Diabetes Social History Household Members: Spouse Housing: House Are you a primary resident care coordinator to a significant other at home: No Do you presently have visiting nurse or other home services: No Alcohol intake: current Alcohol intake frequency: holidays/special occasions only Patient Tobacco Use Status: Former Tobacco user e-Cigarette/Vaping Use: Never Used service: No Current occupational status: employed Cognitive needs: No Hearing needs: No Vision needs: Yes Questionnaire Thrive Questionnaire Date Thrive assessed: 01/15/24 I am a: Patient What is your living situation today?: I have a steady place to live Within the past 12 months, did the food you bought not last and you didn't have the money to get more?: Never true Within the past 12 months, did you worry whether your food would run out before you got money to buy more?: Never true Do you have trouble paying for medicines?: No Do you have trouble getting transportation to medical appointments?: No Do you have trouble paying your heating and electricity bill?: No Do you have trouble taking care of your child, family member or friend?: No Do you have trouble with day-to-day activities such as bathing, preparing meals, shopping, managing finances, etc.?: No Are you currently unemployed and looking for a job?: No Are you interested in more education?: No Please select the resources that you would like help with: None Currently or been in a relationship where the following occur: No concerns reported THRIVE Score: 0 AUDIT C Alcohol Use Questionnaire (AUDIT-C) 1. How often do you have a drink containing alcohol?: 2-4 times a month 2. How many drinks containing alcohol do you have on a typical day when you are drinking?: 1 or 2 3. How often do you have six or more drinks on one occasion?: Less than monthly Total Score: 3 Score Reviewed/Action Taken: Yes CARA-7 AMB Questionnaire CARA-7 Date CARA - 7 assessed: 01/19/24 Source: Developed by Drs. Sunny Monk, Lou Pinto, Sourav Ott and colleagues, with an educational moustapha from [employer]. Review of Systems Const All systems reviewed & are unremarkable except as noted in HPI and below Reports no additional complaints Eyes Reports no additional complaints ENT Reports no additional complaints Card Reports no additional complaints Resp Reports no additional complaints GI Reports no additional complaints Reports no additional complaints Physical exam (Primary Care) Vital Signs: Last Vital Signs Pulse 76 06/06/24 11:26 BP 132/80 06/06/24 11:26 Pulse Ox 96 06/06/24 11:26 Oxygen Delivery Method Room Air 06/06/24 11:26 BMI result Body Mass Index 29.3 Tobacco/Smoking Status: Tobacco use Status Tobacco use date assessed 06/06/24 06/06/24 11:28 Patient Tobacco Use Status Former Tobacco user 06/06/24 11:28 e-Cigarette/Vaping Use Never Used 06/06/24 11:28 Thrive Assessment: Date of Thrive Assessment Date Thrive assessed 01/15/24 06/06/24 11:28 Currently or been in a relationship where the following occur: No concerns reported Const General: no acute distress HENMT Head: Yes normal to inspection Ears: hearing grossly normal bilaterally Face and sinus: Yes normal facial exam Throat: Yes posterior oropharynx normal Eyes General: appearance normal, both eyes and all related structures Neck Neck: Yes no lymphadenopathy and Yes supple Resp Effort & Inspection: normal respiratory effort Auscultation: clear to auscultation bilaterally Cardio Rhythm: regular rhythm Heart sounds: S1 normal heart sound present and S2 normal heart sound present GI Inspection: Yes normal to inspection Palpation (GI): Soft to palpation Percussion: Yes normal to percussion Auscultation: normal bowel sounds Coding Level of Care Code Est Pt Prev Care 40-64y(43373) Diagnoses Left flank pain R10.9 Hypertension I10 Annual physical exam Z00.00 Hyperglycemia R73.9 Vitamin D deficiency E55.9 Lightheadedness R42 Assessment & Plan Assessment & Plan (1) Left flank pain: Code(s): R10.9 - Unspecified abdominal pain Category: Medical Plan: Obtain renal scan to rule out nephrolithiasis (2) Hypertension: Code(s): I10 - Essential (primary) hypertension Category: Medical Plan: Continue current medications (3) Annual physical exam: Code(s): Z00.00 - Encounter for general adult medical examination without abnormal findings Category: Medical Plan: Well-balanced diet regular physical activity discussed with the patient. She is up-to-date with the mammogram colonoscopy and Pap by machine group leader (4) Hyperglycemia: Code(s): R73.9 - Hyperglycemia, unspecified Category: Medical Plan: Continue ADA diet check A1c (5) Vitamin D deficiency: Code(s): E55.9 - Vitamin D deficiency, unspecified Category: Medical Plan: Continue vitamin-D supplement (6) Lightheadedness: Code(s): R42 - Dizziness and giddiness Category: Medical Plan: For recurrent episodes of lightheadedness obtain echocardiogram Orders: Orders US renal BI Today R10.9 - Unspecified abdominal pain CA echo transthoracic complete Today E55.9 - Vitamin D deficiency, unspecified, I10 - Essential (primary) hypertension, R42 - Dizziness and giddiness, R73.9 - Hyperglycemia, unspecified, Z00.00 - Encounter for general adult medical examination without abnormal findings Comprehensive [place]. Panel Fast 6 Months E78.5 - Hyperlipidemia, unspecified, I10 - Essential (primary) hypertension, R73.9 - Hyperglycemia, unspecified Complete Blood Count Auto Diff 6 Months E78.5 - Hyperlipidemia, unspecified, I10 - Essential (primary) hypertension, R73.9 - Hyperglycemia, unspecified Lipid Panel 6 Months E78.5 - Hyperlipidemia, unspecified, I10 - Essential (primary) hypertension, R73.9 - Hyperglycemia, unspecified Hemoglobin A1c 6 Months E78.5 - Hyperlipidemia, unspecified, I10 - Essential (primary) hypertension, R73.9 - Hyperglycemia, unspecified
[2024-06-06 11:26] VITALS: BP 132/80; PULSE 76; O2SAT 96; BMI 29.3
== END 2024-06-06 12:23 | disposition home or self-care (01) ==
PROVIDERS: PCP Internal Medicine; Visit Provider Internal Medicine
DX: R10.9 Unspecified abdominal pain (principal); I10 Essential (primary) hypertension; Z00.00 Encounter for general adult medical examination without abnormal findings; R73.9 Hyperglycemia, unspecified; E55.9 Vitamin D deficiency, unspecified; R42 Dizziness and giddiness

== ENCOUNTER → 2024-06-06 10:56 | Outpatient (BNVA) | payer OTHER, SELFPAY | PROVIDERS: PCP Internal Medicine; Visit Provider Internal Medicine ==

== ENCOUNTER 2024-06-27 07:25 | Outpatient (REF) | payer OTHER, SELFPAY | END 2024-06-27 07:26 | disposition home or self-care (01) | LOC: HO.HMGCX 07:25 | PROVIDERS: PCP Internal Medicine; Visit Provider Internal Medicine | DX: R10.9 Unspecified abdominal pain (principal) | CPT/HCPCS: 76775 ==

== ENCOUNTER → 2024-06-27 08:15 | Outpatient (BNV) | payer OTHER, SELFPAY | PROVIDERS: PCP Internal Medicine; Visit Provider Radiology Diagnostic Radiology | DX: D17.71 Benign lipomatous neoplasm of kidney (principal) | CPT/HCPCS: 76775 ==

== ENCOUNTER → 2024-07-14 12:47 | Outpatient (REF) | payer OTHER, SELFPAY ==
--- NOTE | 2024-07-14 12:50 | CA_ITS ---
Transthoracic Echocardiogram Patient (Last, First, Middle): Richelle Antonio M Gender: Female Date of : 1960 Age: 64 Procedure Date: 07/14/2024 Procedure Type: Transthoracic Echocardiogram Location: OP Height: 167.64 cm Weight: 82.1 kg BSA: 1.92 m2 Heart Rate: 73 bpm BP: 132 / 80 mmHg Hair Dresser: SB Referring MD: Crissy Phan MD Symptoms: I10 - Essential (primary) hypertension Study Quality: Adequate w contrast ECG Rhythm: Sinus Conclusions: - The left ventricular systolic function is normal. The calculated ejection fraction is 69% by biplane method. - No obvious valvular pathology seen on this study. Findings Procedure Information Contrast agent, definity, is being given per protocol without apparent complications. The quality of the study was technically difficult. The study quality is limited by lung artifact. Left Ventricle Normal left ventricular cavity size. There is normal left ventricular wall thickness. The left ventricular systolic function is normal. The calculated ejection fraction is 69% by biplane method. There is no evidence of regional wall motion abnormalities. Diastolic function is normal for age. Right Ventricle Normal right ventricular cavity size and systolic function. Atria Both atria are normal in size. Aortic Valve The aortic valve was not well visualized. There is no aortic valve stenosis. There is no aortic valve regurgitation. Mitral Valve The mitral valve appears normal. There is no mitral valve regurgitation. There is no mitral valve stenosis. Pulmonic Valve The pulmonic valve is likely normal. Tricuspid Valve There is no tricuspid valve regurgitation. Tricuspid regurgitation envelope is inadequate for calculation of right ventricular systolic pressure. Great Vessels The asc aorta is normal in size. Venous The inferior vena cava is normal in size and collapses greater than 50% with inspiration. Pericardium/Pleural There is no evidence of pericardial effusion. Prior Study Comparison No prior study available for comparison. Recommendations, Care & Conclusions No obvious valvular pathology seen on this study. Measurements 2D Linear Measurements IVSd: 0.87 0.6-0.9/0.6-1.0 cm LVIDd: 4.56 3.9-5.3/4.2-5.9 cm LVIDd Index: 2.38 2.4-3.2/2.2-3.1 cm/m2 LVIDs: 2.88 2.0-3.6 cm LVPWd: 0.81 0.7-1.1 cm LA Diam: 3.20 2.7-3.8/3.0-4.0 cm LAIDs Index: 1.67 1.5-2.3 cm/m2 LV Mass: 153.35 67-162/88-224 g LV Mass Index: 79.87 43-95/49-115 g/m2 LVOT Diam: 2.00 3.0+(-)1.3 cm 2D Systolic Function EF 4C: 73.40 >55% EF 2C: 62.90 >55% EF BiP: 68.90 >55% Mitral Valve MV Pk E: 0.88 MV PK A: 0.82 MV Decel Time: 199.00 E/A: 1.10 E'Lateral: 9.03 E'Medial: 7.72 E/E' Med: 11.40 E/E' Lat: 9.70 PHT: 58.00 MVA PHT: 3.79 Decel [place]: 4.40 Aortic Valve AoV Pk Sai: 1.33 AoV Pk Grad: 7.00 DIRK: 2.21 LVOT LVOT Pk Sai: 1.00 LVOT Mn Sia: 0.67 LVOT VTI: 0.18 LVOT Pk Grad: 4.00 LVOT Mn Grad: 2.00 LVOT Diam: 2.00 LVOT Area: 3.14 Diastolic Function MV Pk E: 0.88 MV Pk A: 0.82 E/A: 1.10 E'Medial: 7.72 E/E' Med: 11.40 E' Laterial: 9.03 E/E' Lat: 9.70 Right Ventricle TAPSE (mm): 22.60 TVS' Sai: 13.20 Tricuspid Valve RA Press: 3.00 Great Vessels Aorta Sinus of Valsalva: 3.00 2.0-3.5 cm Ao Asc: 2.90 2.1-3.4 cm Pulmonary Valve PV Pk Sai: 1.53 Peak PV Grad: 9.00 Updated in Other Vendor System with Status of Final Cristian Rowan MD electronically signed on 07/16/2024 11:58:50 AM with status of Final
== END ==
LOC: HO.CARD 12:47
PROVIDERS: Visit Provider Internal Medicine
DX: I10 Essential (primary) hypertension (principal); R42 Dizziness and giddiness
CPT/HCPCS: 93306; Q9957

== ENCOUNTER → 2024-07-14 12:50 | Outpatient (BNV) | payer OTHER, SELFPAY | PROVIDERS: Visit Provider Internal Medicine | DX: I10 Essential (primary) hypertension (principal) | CPT/HCPCS: 93306 ==

== ENCOUNTER 2024-12-01 14:30 | Outpatient (REF) | payer OTHER, SELFPAY ==
[2024-12-02 11:30] LABS: Influenza A PCR NEGATIVE (Negative); Influenza B PCR NEGATIVE (Negative); Resp Syncy Virus RNA Qual PCR NEGATIVE (Negative); SARS COV2 PCR INHOUSE NEGATIVE (Negative)
== END 2024-12-01 14:31 | disposition home or self-care (01) ==
LOC: HO.LAB 14:30
PROVIDERS: Visit Provider Internal Medicine
DX: J06.9 Acute upper respiratory infection, unspecified (principal); J45.909 Unspecified asthma, uncomplicated; R09.89 Other specified symptoms and signs involving the circulatory and respiratory systems
CPT/HCPCS: 0241U; 96127

== ENCOUNTER 2024-12-01 14:30 | Outpatient (AMB) | payer OTHER, SELFPAY ==
[2024-12-01 14:54] VITALS: BP 128/76; PULSE 90; RESP 18; TEMP 36.8; O2SAT 95; BMI 28.7
--- NOTE | 2024-12-01 14:54 | A.OFFPC_ITS ---
Vital Signs 12/01/24 14:54 Height 5 ft 6 in Weight 178 lb BMI 28.7 BP 128/76 Blood Pressure Location Lt brachial Position Sitting Respiration 18 Pulse 90 Pulse Source Pulse Oximeter Temp 98.3 F Temp Source Oral Pulse Oximetry (%) 95 Oxygen Delivery Method Room Air Intake Visit Reasons: cough, wheezing Intake Note: Pt is here today for a sick visit. Pt c/o cough, wheezing, congestion. Allergies No Known Allergies [No Known Allergies*] Allergy (Verified 12/01/24 14:57) Medication List - Last Reconciled 12/01/24 by Crissy Phan MD acetaminophen 1,000 mg (2 x 500 mg) PO Q6H PRN albuterol sulfate 0.63 mg (3 mL) inhalation QID PRN albuterol sulfate 90 mcg/actuation 2 puffs inhalation Q4-6H PRN amlodipine-olmesartan 10-40 mg 1 tab PO DAILY cholestyramine (with sugar) 4 gram 4 g p.o. b.i.d. dissolved in water; PO; 30 days esomeprazole magnesium 40 mg PO DAILY nebulizers As directed paroxetine HCl 40 mg PO DAILY rosuvastatin (Crestor) 10 mg PO DAILY Tobacco use date assessed: 12/01/24 Fall risk assessment: No Falls in past year Last assessed Fall Risk: 12/01/24 Dental Screening Dental Screen Date: 06/06/24 HPI cough, wheezing HPI Details Patient complains of 2 days of coughing increasing shortness or breath wheezing low-grade fever body aches and diarrhea. She has been using albuterol x-rays 4 times a day. Hypertension and hyperlipidemia controlled on current medications PENDING SALE TO [facility] Medical History Dysplastic nevi Tinnitus Elevated LFTs Hyperlipidemia Annual physical exam Trochanteric bursitis of right hip Elevated cholesterol Thyroid nodule Depression KELLY (obstructive sleep apnea) Hypertension Surgical History History of partial splenectomy History of surgery on right wrist Hx of hysterectomy Hx of cholecystectomy H/O esophagogastroduodenoscopy Hx of colonoscopy Family History Father Parkinsons Asbestos exposure Mother COPD (chronic obstructive pulmonary disease) Diabetes Social History Household Members: Spouse Housing: House Are you a primary resident care spec to a significant other at home: No Do you presently have visiting nurse or other home services: No Alcohol intake: current Alcohol intake frequency: holidays/special occasions only Patient Tobacco Use Status: Former Tobacco user e-Cigarette/Vaping Use: Never Used service: No Current occupational status: employed Cognitive needs: No Hearing needs: No Vision needs: Yes Questionnaire PHQ-9 Over the last 2 weeks, how often have you been bothered by any of the following problems? 1. Little interest or pleasure in doing things: not at all 2. Feeling down, depressed, or hopeless: not at all 3. Trouble falling or staying asleep, or sleeping too much: not at all 4. Feeling tired or having little energy: several days 5. Poor appetite or overeating: several days 6. Feeling bad about yourself - or that you are a failure or have let yourself or your family down: not at all 7. Trouble concentrating on things, such as reading the newspaper or watching television: not at all 8. Moving or speaking so slowly that other people could have noticed. Or the opposite - being so fidgety or restless that you have been moving around a lot more than usual: not at all 9. Thoughts that you would be better off or of hurting yourself in some way: not at all Total score: 2 Depression Screening Interpretation: Negative Depression Screening Done: Yes 73830 - PHQ-9 Billing: Yes Source: Developed by Drs. Sunny Monk, Lou Pinto, Sourav Ott and colleagues, with an educational moustapha from [employer]. Thrive Questionnaire Date Thrive assessed: 12/01/24 I am a: Patient What is your living situation today?: I have a steady place to live Within the past 12 months, did the food you bought not last and you didn't have the money to get more?: Never true Within the past 12 months, did you worry whether your food would run out before you got money to buy more?: Never true Do you have trouble paying for medicines?: No Do you have trouble getting transportation to medical appointments?: No Do you have trouble paying your heating and electricity bill?: No Do you have trouble taking care of your child, family member or friend?: No Do you have trouble with day-to-day activities such as bathing, preparing meals, shopping, managing finances, etc.?: No Are you currently unemployed and looking for a job?: No Are you interested in more education?: No Please select the resources that you would like help with: None Currently or been in a relationship where the following occur: No concerns reported THRIVE Score: 0 AUDIT C Alcohol Use Questionnaire (AUDIT-C) 1. How often do you have a drink containing alcohol?: 2-3 times a week 2. How many drinks containing alcohol do you have on a typical day when you are drinking?: 1 or 2 3. How often do you have six or more drinks on one occasion?: Never Total Score: 3 CARA-7 AMB Questionnaire CARA-7 Date CARA - 7 assessed: 12/01/24 Feeling nervous, anxious, or on edge: 0 = Not at all Not being able to stop or control worryin = Not at all Worrying too much about different things: 0 = Not at all Trouble relaxin = Not at all Being so restless that it is hard to sit still: 0 = Not at all Becoming easily annoyed or irritable: 0 = Not at all Feeling afraid as if something awful might happen: 0 = Not at all Total CARA-7 score (0-4 normal; 5-9 mild; 10-14 moderate; 15-21 severe): 0 Source: Developed by Drs. Sunny Monk, Lou Pinto, Sourav Ott and colleagues, with an educational moustapha from [employer]. CARA-7 Assessment Billing CARA-7 Assessment Tool: CARA-7 Assessment 97035 Review of Systems Const All systems reviewed & are unremarkable except as noted in HPI and below Eyes Reports no additional complaints ENT Reports no additional complaints Card Reports no additional complaints Resp Reports no additional complaints GI Reports no additional complaints Physical exam (Primary Care) Vital Signs: Last Vital Signs Temp 98.3 F 12/01/24 14:54 Pulse 90 12/01/24 14:54 Resp 18 12/01/24 14:54 BP 128/76 12/01/24 14:54 Pulse Ox 95 12/01/24 14:54 Oxygen Delivery Method Room Air 12/01/24 14:54 BMI result Body Mass Index 28.7 Tobacco/Smoking Status: Tobacco use Status Tobacco use date assessed 12/01/24 12/01/24 15:00 Patient Tobacco Use Status Former Tobacco user 12/01/24 14:56 e-Cigarette/Vaping Use Never Used 12/01/24 14:56 PHQ-9: PHQ-9 Score PHQ-9: Total score 2 12/01/24 15:00 Depression Screening Interpretation: Negative Thrive Assessment: Date of Thrive Assessment Date Thrive assessed 12/01/24 12/01/24 15:00 Currently or been in a relationship where the following occur: No concerns reported Const General: no acute distress HENMT Head: Yes normal to inspection Ears: hearing grossly normal bilaterally Face and sinus: Yes normal facial exam Throat: Yes posterior oropharynx normal Eyes General: appearance normal, both eyes and all related structures Neck Neck: Yes no lymphadenopathy and Yes supple Resp Effort & Inspection: able to speak in complete sentences Auscultation: wheezes and diminished lung sounds Cardio Rhythm: regular rhythm Heart sounds: S1 normal heart sound present and S2 normal heart sound present Coding Level of Care Code Est Pt Level 3 (63993) Diagnoses URI (upper respiratory infection) J06.9 Asthma J45.909 Additional Codes CARA-7 Assessment Billing - CARA-7 Assessment Tool: CARA-7 Assessment 73106 ([id number]) PHQ-9 - 76734 - PHQ-9 Billing: Yes ([id number]) Assessment & Plan Assessment & Plan (1) URI (upper respiratory infection): Code(s): J06.9 - Acute upper respiratory infection, unspecified Category: Medical Plan: Check nasal swab for viral URI (2) Asthma: Code(s): J45.909 - Unspecified asthma, uncomplicated Category: Medical Plan: Prednisone taper prescribed patient will continue albuterol as needed she will follow-up next week Orders: Orders SARS-CoV2/FLU/RSV Today R09.89 - Other specified symptoms and signs involving the circulatory and respiratory systems Medications: New prednisone 6 tabl qd for 3 days, then 5 tabl qd for 3 days, then 4 tabl qd for 3 days, then 3 tabl qd for 3 days, then 2 tabl qd for 3 days, then 1 tabl qd for 3 days 10 mg PO DAILY 63 tabs 0RF
== END 2024-12-01 15:24 | disposition home or self-care (01) ==
LOC: HO.HMCC 14:31
PROVIDERS: Visit Provider Internal Medicine
DX: J06.9 Acute upper respiratory infection, unspecified (principal); J45.909 Unspecified asthma, uncomplicated

== ENCOUNTER 2024-12-05 11:28 | Outpatient (AMB) | payer OTHER, SELFPAY ==
[2024-12-05 11:56] VITALS: BP 122/78; PULSE 70; TEMP 36.7; O2SAT 98; BMI 29.3
--- NOTE | 2024-12-05 11:56 | MHC.PC.OV ---
Vital Signs 12/05/24 11:56 Height 5 ft 6 in Weight 181 lb 6 oz BMI 29.3 BP 122/78 Blood Pressure Location Rt brachial Position Sitting Pulse 70 Pulse Source Pulse Oximeter Temp 98.0 F Temp Source Oral Pulse Oximetry (%) 98 Oxygen Delivery Method Room Air Intake Visit Reasons: 6m follow up Allergies No Known Allergies [No Known Allergies*] Allergy (Verified 12/05/24 11:56) Medication List - Last Reconciled 12/05/24 by Crissy Phan MD acetaminophen 1,000 mg (2 x 500 mg) PO Q6H PRN albuterol sulfate 0.63 mg (3 mL) inhalation QID PRN albuterol sulfate 90 mcg/actuation 2 puffs inhalation Q4-6H PRN amlodipine-olmesartan 10-40 mg 1 tab PO DAILY cholestyramine (with sugar) 4 gram 4 g p.o. b.i.d. dissolved in water; PO; 30 days esomeprazole magnesium 40 mg PO DAILY nebulizers As directed paroxetine HCl 40 mg PO DAILY prednisone 10 mg PO DAILY rosuvastatin (Crestor) 10 mg PO DAILY Tobacco use date assessed: 12/05/24 Fall risk assessment: No Falls in past year Last assessed Fall Risk: 12/05/24 Dental Screening Dental Screen Date: 12/05/24 Did you have a dental visit in the last 12 months?: Yes Did you have a dental problem in the last 6 months where you did not have access to dental care?: No Was dental information given to patient?: Patient has dentist HPI 6m follow up HPI Details Pt presents for f/u URI, she is feeling better but still reports intermittent wheezing and coughing. Patient reports insomnia while taking prednisone. Hypertension and hyperlipidemia are controlled on current medications [facility] Medical History Dysplastic nevi Tinnitus Elevated LFTs Hyperlipidemia Annual physical exam Trochanteric bursitis of right hip Elevated cholesterol Thyroid nodule Depression KELLY (obstructive sleep apnea) Hypertension Surgical History History of partial splenectomy History of surgery on right wrist Hx of hysterectomy Hx of cholecystectomy H/O esophagogastroduodenoscopy Hx of colonoscopy Family History Father Parkinsons Asbestos exposure Mother COPD (chronic obstructive pulmonary disease) Diabetes Social History Household Members: Spouse Housing: House Are you a primary clinical care manager to a significant other at home: No Do you presently have visiting nurse or other home services: No Alcohol intake: current Alcohol intake frequency: holidays/special occasions only Patient Tobacco Use Status: Former Tobacco user e-Cigarette/Vaping Use: Never Used service: No Current occupational status: employed Cognitive needs: No Hearing needs: No Vision needs: Yes Questionnaire PHQ-9 Over the last 2 weeks, how often have you been bothered by any of the following problems? 1. Little interest or pleasure in doing things: not at all 2. Feeling down, depressed, or hopeless: not at all 3. Trouble falling or staying asleep, or sleeping too much: not at all 4. Feeling tired or having little energy: several days 5. Poor appetite or overeating: several days 6. Feeling bad about yourself - or that you are a failure or have let yourself or your family down: not at all 7. Trouble concentrating on things, such as reading the newspaper or watching television: not at all 8. Moving or speaking so slowly that other people could have noticed. Or the opposite - being so fidgety or restless that you have been moving around a lot more than usual: not at all 9. Thoughts that you would be better off or of hurting yourself in some way: not at all Total score: 2 Depression Screening Interpretation: Negative Depression Screening Done: Yes 77894 - PHQ-9 Billing: Yes Source: Developed by Drs. Sunny Monk, Lou Pinto, Sourav Ott and colleagues, with an educational moustapha from [employer]. Thrive Questionnaire Date Thrive assessed: 12/05/24 I am a: Patient What is your living situation today?: I have a steady place to live Within the past 12 months, did the food you bought not last and you didn't have the money to get more?: Never true Within the past 12 months, did you worry whether your food would run out before you got money to buy more?: Never true Do you have trouble paying for medicines?: No Do you have trouble getting transportation to medical appointments?: No Do you have trouble paying your heating and electricity bill?: No Do you have trouble taking care of your child, family member or friend?: No Do you have trouble with day-to-day activities such as bathing, preparing meals, shopping, managing finances, etc.?: No Are you currently unemployed and looking for a job?: No Are you interested in more education?: No Please select the resources that you would like help with: None Currently or been in a relationship where the following occur: No concerns reported THRIVE Score: 0 AUDIT C Alcohol Use Questionnaire (AUDIT-C) 1. How often do you have a drink containing alcohol?: 2-4 times a month 2. How many drinks containing alcohol do you have on a typical day when you are drinking?: 1 or 2 3. How often do you have six or more drinks on one occasion?: Never Total Score: 2 CARA-7 AMB Questionnaire CARA-7 Date CARA - 7 assessed: 12/05/24 Feeling nervous, anxious, or on edge: 0 = Not at all Not being able to stop or control worryin = Not at all Worrying too much about different things: 0 = Not at all Trouble relaxin = Not at all Being so restless that it is hard to sit still: 0 = Not at all Becoming easily annoyed or irritable: 0 = Not at all Feeling afraid as if something awful might happen: 0 = Not at all Total CARA-7 score (0-4 normal; 5-9 mild; 10-14 moderate; 15-21 severe): 0 Source: Developed by Drs. Sunny Monk, Lou Pinto, Sourav Ott and colleagues, with an educational moustapha from [employer]. CARA-7 Assessment Billing CARA-7 Assessment Tool: CARA-7 Assessment 07303 Review of Systems Const All systems reviewed & are unremarkable except as noted in HPI and below Reports no additional complaints Eyes Reports no additional complaints ENT Reports no additional complaints Card Reports no additional complaints Resp Reports no additional complaints GI Reports no additional complaints Reports no additional complaints Musc Reports no additional complaints Physical exam (Primary Care) Vital Signs: Last Vital Signs Temp 98.0 F 12/05/24 11:56 Pulse 70 12/05/24 11:56 BP 122/78 12/05/24 11:56 Pulse Ox 98 12/05/24 11:56 Oxygen Delivery Method Room Air 12/05/24 11:56 BMI result Body Mass Index 29.3 Tobacco/Smoking Status: Tobacco use Status Tobacco use date assessed 12/05/24 12/05/24 11:57 Patient Tobacco Use Status Former Tobacco user 12/05/24 11:57 e-Cigarette/Vaping Use Never Used 12/05/24 11:57 PHQ-9: PHQ-9 Score PHQ-9: Total score 2 12/05/24 13:27 Depression Screening Interpretation: Negative Thrive Assessment: Date of Thrive Assessment Date Thrive assessed 12/05/24 12/05/24 11:57 Currently or been in a relationship where the following occur: No concerns reported Const General: no acute distress HENMT Head: Yes normal to inspection Ears: hearing grossly normal bilaterally Face and sinus: Yes normal facial exam Mouth: Normal oral and palatal mucosa present Throat: Yes posterior oropharynx normal Eyes General: appearance normal, both eyes and all related structures Neck Neck: Yes no lymphadenopathy and Yes supple Resp Effort & Inspection: normal respiratory effort Auscultation: wheezes and diminished lung sounds Cardio Rhythm: regular rhythm Heart sounds: S1 normal heart sound present and S2 normal heart sound present GI Inspection: Yes normal to inspection Palpation (GI): Soft to palpation Percussion: Yes normal to percussion Auscultation: normal bowel sounds Coding Level of Care Code Est Pt Level 4 (91413) Diagnoses Asthma J45.909 Hyperlipidemia E78.5 Hypertension I10 Additional Codes CARA-7 Assessment Billing - CARA-7 Assessment Tool: CARA-7 Assessment 17007 ([id number]) PHQ-9 - 12329 - PHQ-9 Billing: Yes ([id number]) Assessment & Plan Assessment & Plan (1) Asthma: Code(s): J45.909 - Unspecified asthma, uncomplicated Category: Medical Plan: For asthma exacerbation continue prednisone taper Breo 200 mcg will be started patient will continue albuterol and will follow-up in 2 weeks (2) Hyperlipidemia: Comment: cont statin Code(s): E78.5 - Hyperlipidemia, unspecified Category: Medical Plan: Continue statin (3) Hypertension: Code(s): I10 - Essential (primary) hypertension Category: Medical Plan: Continue current medications Medications: New Breo Ellipta 200-25 mcg/dose (fluticasone furoate-vilanterol) 1 inh inhalation DAILY 60 ea 1RF NS
== END 2024-12-05 12:43 | disposition home or self-care (01) ==
LOC: HO.HMCC 11:29
PROVIDERS: PCP Internal Medicine; Visit Provider Internal Medicine
DX: J45.909 Unspecified asthma, uncomplicated (principal); E78.5 Hyperlipidemia, unspecified; I10 Essential (primary) hypertension

== ENCOUNTER → 2024-12-05 11:28 | Outpatient (BNVA) | payer OTHER, SELFPAY | PROVIDERS: PCP Internal Medicine; Visit Provider Internal Medicine | DX: I10 Essential (primary) hypertension (principal); E78.5 Hyperlipidemia, unspecified; Z79.899 Other long term (current) drug therapy; J45.909 Unspecified asthma, uncomplicated | CPT/HCPCS: 96127 ==

== ENCOUNTER 2024-12-20 11:45 | Outpatient (AMB) | payer OTHER, SELFPAY ==
[2024-12-20 12:08] VITALS: BP 122/76; PULSE 73; O2SAT 98; BMI 29.2
--- NOTE | 2024-12-20 12:08 | MHC.PC.OV ---
Vital Signs 12/20/24 12:08 Height 5 ft 6 in Weight 181 lb BMI 29.2 BP 122/76 Blood Pressure Location Lt brachial Position Sitting Pulse 73 Pulse Source Pulse Oximeter Pulse Oximetry (%) 98 Oxygen Delivery Method Room Air Intake Visit Reasons: 2 weeks f/up Managing Attorney Required: No Accompanied by: Self / Same As Patient Allergies No Known Allergies [No Known Allergies*] Allergy (Verified 12/20/24 12:08) Medication List - Last Reconciled 12/20/24 by Crissy Phan MD acetaminophen 1,000 mg (2 x 500 mg) PO Q6H PRN albuterol sulfate 0.63 mg (3 mL) inhalation QID PRN albuterol sulfate 90 mcg/actuation 2 puffs inhalation Q4-6H PRN amlodipine-olmesartan 10-40 mg 1 tab PO DAILY Breo Ellipta 200-25 mcg/dose (fluticasone furoate-vilanterol) 1 inh inhalation DAILY NS cholestyramine (with sugar) 4 gram 4 g p.o. b.i.d. dissolved in water; PO; 30 days esomeprazole magnesium 40 mg PO DAILY nebulizers As directed paroxetine HCl 40 mg PO DAILY rosuvastatin (Crestor) 10 mg PO DAILY Tobacco use date assessed: 12/05/24 Fall risk assessment: No Falls in past year Last assessed Fall Risk: 12/20/24 Dental Screening Dental Screen Date: 12/05/24 HPI 2 weeks f/up HPI Details Patient presents for the follow-up. chronic bronchitis improved on Breo , hypertension controlled on current medications. Patient has been using albuterol on and off more but less frequently than before. She denies cough shortness or breath wheezing [facility] Medical History Dysplastic nevi Tinnitus Elevated LFTs Hyperlipidemia Annual physical exam Trochanteric bursitis of right hip Elevated cholesterol Thyroid nodule Depression KELLY (obstructive sleep apnea) Hypertension Surgical History History of partial splenectomy History of surgery on right wrist Hx of hysterectomy Hx of cholecystectomy H/O esophagogastroduodenoscopy Hx of colonoscopy Family History Father Parkinsons Asbestos exposure Mother COPD (chronic obstructive pulmonary disease) Diabetes Social History Household Members: Spouse Housing: House Are you a primary memory care program director to a significant other at home: No Do you presently have visiting nurse or other home services: No Alcohol intake: current Alcohol intake frequency: holidays/special occasions only Patient Tobacco Use Status: Former Tobacco user e-Cigarette/Vaping Use: Never Used service: No Current occupational status: employed Cognitive needs: No Hearing needs: No Vision needs: Yes Questionnaire Thrive Questionnaire Date Thrive assessed: 12/20/24 I am a: Patient What is your living situation today?: I have a steady place to live Within the past 12 months, did the food you bought not last and you didn't have the money to get more?: Never true Within the past 12 months, did you worry whether your food would run out before you got money to buy more?: Never true Do you have trouble paying for medicines?: No Do you have trouble getting transportation to medical appointments?: No Do you have trouble paying your heating and electricity bill?: No Do you have trouble taking care of your child, family member or friend?: No Do you have trouble with day-to-day activities such as bathing, preparing meals, shopping, managing finances, etc.?: No Are you currently unemployed and looking for a job?: No Are you interested in more education?: No Please select the resources that you would like help with: None Currently or been in a relationship where the following occur: No concerns reported THRIVE Score: 0 CARA-7 AMB Questionnaire CARA-7 Date CARA - 7 assessed: 12/05/24 Source: Developed by Drs. Sunny Monk, Lou Pinto, Sourav Ott and colleagues, with an educational moustapha from [employer]. Review of Systems Const All systems reviewed & are unremarkable except as noted in HPI and below ENT Reports no additional complaints Card Reports no additional complaints GI Reports no additional complaints Reports no additional complaints Physical exam (Primary Care) Vital Signs: Last Vital Signs Pulse 73 12/20/24 12:08 BP 122/76 12/20/24 12:08 Pulse Ox 98 12/20/24 12:08 Oxygen Delivery Method Room Air 12/20/24 12:08 BMI result Body Mass Index 29.2 Tobacco/Smoking Status: Tobacco use Status Tobacco use date assessed 12/05/24 12/20/24 12:12 Patient Tobacco Use Status Former Tobacco user 12/20/24 12:12 e-Cigarette/Vaping Use Never Used 12/20/24 12:12 Thrive Assessment: Date of Thrive Assessment Date Thrive assessed 12/20/24 12/20/24 12:12 Currently or been in a relationship where the following occur: No concerns reported Const General: no acute distress HENMT Throat: Yes posterior oropharynx normal Neck Neck: Yes supple Resp Effort & Inspection: normal respiratory effort Auscultation: clear to auscultation bilaterally Cardio Rhythm: regular rhythm Heart sounds: S1 normal heart sound present and S2 normal heart sound present Coding Level of Care Code Est Pt Level 4 (52600) Diagnoses Chronic bronchitis J42 Hypertension I10 Hyperlipidemia E78.5 Assessment & Plan Assessment & Plan (1) Chronic bronchitis: Code(s): J42 - Unspecified chronic bronchitis Category: Medical Plan: Continue Breo albuterol PRN follow-up in 2 months (2) Hypertension: Code(s): I10 - Essential (primary) hypertension Category: Medical Plan: Continue current medications (3) Hyperlipidemia: Comment: cont statin Code(s): E78.5 - Hyperlipidemia, unspecified Category: Medical Plan: Continue statin
== END 2024-12-20 12:30 | disposition home or self-care (01) ==
PROVIDERS: PCP Internal Medicine; Visit Provider Internal Medicine
DX: J42 Unspecified chronic bronchitis (principal); I10 Essential (primary) hypertension; E78.5 Hyperlipidemia, unspecified

== ENCOUNTER → 2024-12-20 11:45 | Outpatient (BNVA) | payer OTHER, SELFPAY | PROVIDERS: PCP Internal Medicine; Visit Provider Internal Medicine ==

== ENCOUNTER 2024-12-30 06:37 | Outpatient (REF) | payer OTHER, SELFPAY ==
[2024-12-30 10:24] LABS: MANUAL DIFF FLAG NO
[2024-12-30 10:42] LABS: Basophils Percent Auto 0.7 % (0-2); Eosinophils Absolute Auto 0.2 X10*3/uL (0.0-0.4); Eosinophils Percent Auto 3.4 % (0-4); Hematocrit 43.2 % (37.0-47.0); Hemoglobin 14.1 g/dl (12.0-16.0); Imm Gran Abs Auto 0.02 X10*3/uL (0.00-0.03); Imm Gran Pct Auto 0.3 % (0.0-0.4); Lymphocytes Absolute Auto 1.7 X10*3/uL (1.2-4.9); Lymphocytes Percent Auto 28.6 % (20-40); Mean Corpuscular HGB Conc 32.6 g/dl (31.0-35.0); Mean Corpuscular Hemoglobin 32.3 pg (27.0-33.0); Mean Corpuscular Volume 98.9 fL (80.0-98.0); Monocytes Absolute Auto 0.6 X10*3/uL (0.1-1.2); Monocytes Percent Auto 10.7 % (2-11); Neutrophils Absolute Auto 3.3 x10*3/uL (2.0-8.3); Neutrophils Percent Auto 56.3 % (45-73); Platelet Count 322 X10*3/uL (160-400); Red Blood Count 4.37 X10*6/uL (4.20-5.50); Red Cell Distribution Width 13.4 % (11.0-16.0); White Blood Count 5.9 X10*3/uL (4.8-10.8)
[2024-12-30 10:45] LABS: Estimated Average Glucose 117 mg/dL; Hemoglobin A1c % 5.7 % (<6.0); Total Hemoglobin (HGBA1C) 3687.9575 umol/L
[2024-12-30 10:50] LABS: Alanine Aminotransferase 42 U/L (0-31); Albumin Level 4.3 g/dL (3.5-5.0); Alkaline Phosphatase 94 U/L (39-117); Anion Gap 14 (12-20); Aspartate Amino Transferase 28 U/L (5-31); Bilirubin Total 0.5 mg/dL (0.0-1.0); Blood Urea Nitrogen 12 mg/dL (9-16); Calcium 8.8 mg/dL (8.4-10.2); Carbon Dioxide 23 mmol/L (22-29); Chloride 106 mmol/L (96-108); Cholesterol 188 mg/dL (<200); Estimated Glomerular Filt Rate > 60; Glucose Fasting 121 mg/dL (60-99); HDL Cholesterol 56 mg/dL (>40); LDL Cholesterol Calculated 107 mg/dL (<100); Sodium 139 mmol/L (135-145); Total Protein 6.8 g/dL (6.5-8.0); Triglycerides 125 mg/dL (<150)
== END 2024-12-30 06:38 | disposition home or self-care (01) ==
LOC: HO.HMGCLDS 06:37
PROVIDERS: PCP Internal Medicine; Visit Provider Internal Medicine
DX: R73.9 Hyperglycemia, unspecified (principal); I10 Essential (primary) hypertension; E78.5 Hyperlipidemia, unspecified
CPT/HCPCS: 36415; 80053; 80061; 83036; 85025

== ENCOUNTER 2025-02-27 12:22 | Outpatient (AMB) | payer OTHER, SELFPAY ==
--- NOTE | 2025-02-27 12:30 | MHC.PC.OV ---
Vital Signs 02/27/25 12:31 Height 5 ft 6 in Weight 182 lb BMI 29.4 BP 116/68 Blood Pressure Location Lt brachial Position Sitting Pulse 79 Pulse Source Pulse Oximeter Pulse Oximetry (%) 96 Intake Visit Reasons: 2 months f/up Allergies No Known Allergies (No Known Allergies*) Allergy (Verified 12/20/24 12:08) Medication List - Last Reconciled 02/27/25 by Crissy Phan MD acetaminophen 1,000 mg (2 x 500 mg) PO Q6H PRN albuterol sulfate 0.63 mg (3 mL) inhalation QID PRN albuterol sulfate 90 mcg/actuation 2 puffs inhalation Q4-6H PRN amlodipine-olmesartan 10-40 mg 1 tab PO DAILY Breo Ellipta 200-25 mcg/dose (fluticasone furoate-vilanterol) 1 inh inhalation DAILY NS cholestyramine (with sugar) 4 gram 4 g p.o. b.i.d. dissolved in water; PO; 30 days esomeprazole magnesium 40 mg PO DAILY nebulizers As directed paroxetine HCl 40 mg PO DAILY rosuvastatin (Crestor) 10 mg PO DAILY Tobacco use date assessed: 12/05/24 Fall risk assessment: No Falls in past year Last assessed Fall Risk: 02/27/25 Dental Screening Dental Screen Date: 12/05/24 HPI 2 months f/up HPI Details Patient presents for the follow-up. Chronic asthma is controlled on Breo . Patient is uses albuterol up to twice a week. hypertension and hyperlipidemia are stable on current medications. [facility] Medical History (Updated 02/27/25 @ 13:42 by Crissy Phan MD) SOB (shortness of breath) Asthma Hyperglycemia Dysplastic nevi Tinnitus Elevated LFTs Hyperlipidemia Annual physical exam Trochanteric bursitis of right hip Elevated cholesterol Thyroid nodule Depression KELLY (obstructive sleep apnea) Hypertension Surgical History History of partial splenectomy History of surgery on right wrist Hx of hysterectomy Hx of cholecystectomy H/O esophagogastroduodenoscopy Hx of colonoscopy Family History Father Parkinsons Asbestos exposure Mother COPD (chronic obstructive pulmonary disease) Diabetes Social History Household Members: Spouse Housing: House Are you a primary summer child caregiver to a significant other at home: No Do you presently have visiting nurse or other home services: No Alcohol intake: current Alcohol intake frequency: holidays/special occasions only Patient Tobacco Use Status: Former Tobacco user e-Cigarette/Vaping Use: Never Used service: No Current occupational status: employed Cognitive needs: No Hearing needs: No Vision needs: Yes Questionnaire Thrive Questionnaire Date Thrive assessed: 12/01/24 I am a: Patient What is your living situation today?: I have a steady place to live Within the past 12 months, did the food you bought not last and you didn't have the money to get more?: Never true Within the past 12 months, did you worry whether your food would run out before you got money to buy more?: Never true Do you have trouble paying for medicines?: No Do you have trouble getting transportation to medical appointments?: No Do you have trouble paying your heating and electricity bill?: No Do you have trouble taking care of your child, family member or friend?: No Do you have trouble with day-to-day activities such as bathing, preparing meals, shopping, managing finances, etc.?: No Are you currently unemployed and looking for a job?: No Are you interested in more education?: No Please select the resources that you would like help with: None Currently or been in a relationship where the following occur: No concerns reported THRIVE Score: 0 CARA-7 AMB Questionnaire CARA-7 Date CARA - 7 assessed: 12/05/24 Source: Developed by Drs. Sunny Monk, Lou Pinto, Sourav Ott and colleagues, with an educational moustapha from [employer]. Review of Systems Const All systems reviewed & are unremarkable except as noted in HPI and below Card Reports no additional complaints Resp Reports no additional complaints GI Reports no additional complaints Reports no additional complaints Physical exam (Primary Care) Vital Signs: Last Vital Signs Pulse 79 02/27/25 12:31 BP 116/68 02/27/25 12:31 Pulse Ox 96 02/27/25 12:31 BMI result Body Mass Index 29.4 Tobacco/Smoking Status: Tobacco use Status Tobacco use date assessed 12/05/24 02/27/25 12:33 Patient Tobacco Use Status Former Tobacco user 02/27/25 12:33 e-Cigarette/Vaping Use Never Used 02/27/25 12:33 Thrive Assessment: Date of Thrive Assessment Date Thrive assessed 12/01/24 02/27/25 12:33 Currently or been in a relationship where the following occur: No concerns reported Const General: no acute distress HENMT Face and sinus: Yes normal facial exam Neck Neck: Yes supple Resp Effort & Inspection: normal respiratory effort Auscultation: clear to auscultation bilaterally Cardio Rhythm: regular rhythm Heart sounds: S1 normal heart sound present and S2 normal heart sound present GI Inspection: Yes normal to inspection Coding Level of Care Code Est Pt Level 4 (26516) Diagnoses Asthma J45.909 Hyperlipidemia E78.5 Hypertension I10 Hyperglycemia R73.9 Assessment & Plan Assessment & Plan (1) Asthma: Comment: PFT 06/2024 [place] c/w reversible obstruction normal diffusion Code(s): J45.909 - Unspecified asthma, uncomplicated Category: Medical Plan: Continue Breo and albuterol PRN, patient was advised to start antihistamine in the beginning of fall season (2) Hyperlipidemia: Comment: cont statin Code(s): E78.5 - Hyperlipidemia, unspecified Category: Medical Plan: Continue statin (3) Hypertension: Code(s): I10 - Essential (primary) hypertension Category: Medical Plan: Continue current medications (4) Hyperglycemia: Comment: A1C ,7 12/2024 Code(s): R73.9 - Hyperglycemia, unspecified Category: Medical Plan: ADA diet increase exercise weight loss discussed with the patient, follow-up in 3 months with a fasting labs before Orders: Orders Comprehensive [place]. Panel Fast 3 Months E55.9 - Vitamin D deficiency, unspecified, E78.5 - Hyperlipidemia, unspecified, I10 - Essential (primary) hypertension, R73.9 - Hyperglycemia, unspecified Complete Blood Count Auto Diff 3 Months E55.9 - Vitamin D deficiency, unspecified, E78.5 - Hyperlipidemia, unspecified, I10 - Essential (primary) hypertension, R73.9 - Hyperglycemia, unspecified Lipid Panel 3 Months E55.9 - Vitamin D deficiency, unspecified, E78.5 - Hyperlipidemia, unspecified, I10 - Essential (primary) hypertension, R73.9 - Hyperglycemia, unspecified UA w Microscopic 3 Months E55.9 - Vitamin D deficiency, unspecified, E78.5 - Hyperlipidemia, unspecified, I10 - Essential (primary) hypertension, R73.9 - Hyperglycemia, unspecified Hemoglobin A1c 3 Months E55.9 - Vitamin D deficiency, unspecified, E78.5 - Hyperlipidemia, unspecified, I10 - Essential (primary) hypertension, R73.9 - Hyperglycemia, unspecified TSH reflex Free T4 3 Months E55.9 - Vitamin D deficiency, unspecified, E78.5 - Hyperlipidemia, unspecified, I10 - Essential (primary) hypertension, R73.9 - Hyperglycemia, unspecified Microalbumin, Random (w Creat) 3 Months E55.9 - Vitamin D deficiency, unspecified, E78.5 - Hyperlipidemia, unspecified, I10 - Essential (primary) hypertension, R73.9 - Hyperglycemia, unspecified Medications: Refilled Breo Ellipta 200-25 mcg/dose (fluticasone furoate-vilanterol) 1 inh inhalation DAILY 90 ea 3RF NS
[2025-02-27 12:31] VITALS: BP 116/68; PULSE 79; O2SAT 96; BMI 29.4
== END 2025-02-27 13:43 | disposition home or self-care (01) ==
LOC: HO.HMCC 12:23
PROVIDERS: PCP Internal Medicine; Visit Provider Internal Medicine
DX: J45.909 Unspecified asthma, uncomplicated (principal); E78.5 Hyperlipidemia, unspecified; I10 Essential (primary) hypertension; R73.9 Hyperglycemia, unspecified

== ENCOUNTER 2025-04-21 14:03 | Outpatient (AMB) | payer OTHER, SELFPAY ==
--- NOTE | 2025-04-21 14:03 | A.OFFVIS_ITS ---
Vital Signs 04/21/25 14:04 Height 5 ft 6 in Intake Visit Reasons: Abdominal pain Allergies No Known Allergies (No Known Allergies*) Allergy (Verified 12/20/24 12:08) [facility] Medical History (Updated 02/27/25 @ 13:42 by Crissy Phan MD) SOB (shortness of breath) Asthma Hyperglycemia Dysplastic nevi Tinnitus Elevated LFTs Hyperlipidemia Annual physical exam Trochanteric bursitis of right hip Elevated cholesterol Thyroid nodule Depression KELLY (obstructive sleep apnea) Hypertension Surgical History History of partial splenectomy History of surgery on right wrist Hx of hysterectomy Hx of cholecystectomy H/O esophagogastroduodenoscopy Hx of colonoscopy Family History Father Parkinsons Asbestos exposure Mother COPD (chronic obstructive pulmonary disease) Diabetes Social History Household Members: Spouse Housing: House Are you a primary clinical care manager to a significant other at home: No Do you presently have visiting nurse or other home services: No Alcohol intake: current Alcohol intake frequency: holidays/special occasions only Patient Tobacco Use Status: Former Tobacco user e-Cigarette/Vaping Use: Never Used service: No Current occupational status: employed Cognitive needs: No Hearing needs: No Vision needs: Yes Coding
[2025-04-21 14:04] VITALS: BP 124/74; PULSE 82; RESP 17; TEMP 36.6; O2SAT 98; BMI 29.4
--- NOTE | 2025-04-21 14:09 | MHC.PC.OV ---
Vital Signs 04/21/25 14:04 Height 5 ft 6 in Weight 182 lb BMI 29.4 BP 124/74 Blood Pressure Location Rt brachial Position Sitting Respiration 17 Pulse 82 Pulse Source Pulse Oximeter Temp 97.9 F Temp Source Oral Pulse Oximetry (%) 98 Oxygen Delivery Method Room Air Intake Visit Reasons: Abdominal pain Intake Note: Pt is here today for a sick visit. Pt c/o L side lower abdominal sharp pain for a week now. Allergies No Known Allergies (No Known Allergies*) Allergy (Verified 04/21/25 14:10) Medication List - Last Reconciled 04/21/25 by Crissy Phan MD acetaminophen 1,000 mg (2 x 500 mg) PO Q6H PRN albuterol sulfate 0.63 mg (3 mL) inhalation QID PRN albuterol sulfate 90 mcg/actuation 2 puffs inhalation Q4-6H PRN amlodipine-olmesartan 10-40 mg 1 tab PO DAILY Breo Ellipta 200-25 mcg/dose (fluticasone furoate-vilanterol) 1 inh inhalation DAILY NS cholestyramine (with sugar) 4 gram 4 g p.o. b.i.d. dissolved in water; PO; 30 days ciprofloxacin HCl 500 mg PO BID esomeprazole magnesium 40 mg PO DAILY nebulizers As directed paroxetine HCl 40 mg PO DAILY rosuvastatin (Crestor) 10 mg PO DAILY Tobacco use date assessed: 04/21/25 Dental Screening Dental Screen Date: 12/05/24 HPI Abdominal pain HPI Details Patient complains of left lower quadrant abdominal pain for 1 week on and off sharp needle-like getting more intense today. The pain is worse with the movement. Patient denies nausea vomiting fever chills change in the bowel habits or urination. She denies hematuria hematochezia [facility] Medical History (Updated 04/21/25 @ 14:32 by Crissy Phan MD) SOB (shortness of breath) Asthma Hyperglycemia Dysplastic nevi Tinnitus Elevated LFTs Hyperlipidemia Annual physical exam Trochanteric bursitis of right hip Elevated cholesterol Thyroid nodule Depression KELLY (obstructive sleep apnea) Hypertension Surgical History History of partial splenectomy History of surgery on right wrist Hx of hysterectomy Hx of cholecystectomy H/O esophagogastroduodenoscopy Hx of colonoscopy Family History Father Parkinsons Asbestos exposure Mother COPD (chronic obstructive pulmonary disease) Diabetes Social History Household Members: Spouse Housing: House Are you a primary adult care manager to a significant other at home: No Do you presently have visiting nurse or other home services: No Alcohol intake: current Alcohol intake frequency: holidays/special occasions only Patient Tobacco Use Status: Former Tobacco user e-Cigarette/Vaping Use: Never Used service: No Current occupational status: employed Cognitive needs: No Hearing needs: No Vision needs: Yes Questionnaire Thrive Questionnaire Date Thrive assessed: 12/01/24 CARA-7 AMB Questionnaire CARA-7 Date CARA - 7 assessed: 12/05/24 Source: Developed by Drs. Sunny Monk, Lou Pinto, Sourav Ott and colleagues, with an educational moustapha from [employer]. Review of Systems Const All systems reviewed & are unremarkable except as noted in HPI and below Card Reports no additional complaints Resp Reports no additional complaints GI Reports no additional complaints Reports no additional complaints Physical exam (Primary Care) Vital Signs: Last Vital Signs Temp 97.9 F 04/21/25 14:04 Pulse 82 04/21/25 14:04 Resp 17 04/21/25 14:04 BP 124/74 04/21/25 14:04 Pulse Ox 98 04/21/25 14:04 Oxygen Delivery Method Room Air 04/21/25 14:04 BMI result Body Mass Index 29.4 Tobacco/Smoking Status: Tobacco use Status Tobacco use date assessed 04/21/25 04/21/25 14:10 Patient Tobacco Use Status Former Tobacco user 04/21/25 14:10 e-Cigarette/Vaping Use Never Used 04/21/25 14:10 Thrive Assessment: Date of Thrive Assessment Date Thrive assessed 12/01/24 04/21/25 14:10 Const General: no acute distress HENMT Head: Yes normal to inspection Resp Effort & Inspection: normal respiratory effort Auscultation: clear to auscultation bilaterally Cardio Rhythm: regular rhythm Heart sounds: S1 normal heart sound present and S2 normal heart sound present GI Inspection: Yes normal to inspection Palpation (GI): Soft to palpation, Tenderness to palpation present (GI) in the LLQ, no guarding and No Rebound tenderness present Percussion: Yes normal to percussion Auscultation: normal bowel sounds Coding Level of Care Code Est Pt Level 3 (85389) Diagnoses Abdominal pain R10.9 Assessment & Plan Assessment & Plan (1) Abdominal pain: Code(s): R10.9 - Unspecified abdominal pain Category: Medical Plan: For left lower quadrant abdominal pain check urinalysis and urine culture treat with a Cipro 500 mg twice a day for 1 week for presumed mild diverticulitis. If her symptoms persist CT of the abdomen and pelvis will be obtained Orders: Orders UA w Microscopic Today R10.9 - Unspecified abdominal pain Urine Culture Today R10.9 - Unspecified abdominal pain Medications: New ciprofloxacin HCl 500 mg PO BID 14 tabs 0RF
== END 2025-04-21 15:05 | disposition home or self-care (01) ==
LOC: HO.HMCC 14:04
PROVIDERS: PCP Internal Medicine; Visit Provider Internal Medicine
DX: R10.9 Unspecified abdominal pain (principal); Z13.9 Encounter for screening, unspecified

== ENCOUNTER 2025-04-21 14:03 | Outpatient (REF) | payer OTHER, SELFPAY ==
[2025-04-21 16:38] LABS: Appearance Urine Clear; Glucose Urine UA Negative (Negative); PH 5.0 (5.0-9.0); Specific Gravity - Urine 1.020 (1.005-1.025); UMIC TRIGGER UA YES
== END 2025-04-21 14:04 | disposition home or self-care (01) ==
LOC: HO.LAB 14:03
PROVIDERS: PCP Internal Medicine; Visit Provider Internal Medicine
DX: R10.9 Unspecified abdominal pain (principal); Z79.2 Long term (current) use of antibiotics
CPT/HCPCS: 81001; 81003; 87086

== ENCOUNTER 2025-06-07 06:27 | Outpatient (REF) | payer OTHER, SELFPAY ==
[2025-06-07 10:17] LABS: MANUAL DIFF FLAG NO
[2025-06-07 10:31] LABS: Hematocrit 41.7 % (37.0-47.0); Hemoglobin 13.9 g/dl (12.0-16.0); Imm Gran Abs Auto 0.01 X10*3/uL (0.00-0.03); Imm Gran Pct Auto 0.2 % (0.0-0.4); Lymphocytes Absolute Auto 1.6 X10*3/uL (1.2-4.9); Mean Corpuscular HGB Conc 33.3 g/dl (31.0-35.0); Mean Corpuscular Hemoglobin 32.3 pg (27.0-33.0); Mean Corpuscular Volume 96.8 fL (80.0-98.0); NRBC Abs Auto 0.000 X10*3/uL (0.0-0.012); NRBC Pct Auto 0.0 /100WBC (0.0-0.2); Platelet Count 269 X10*3/uL (160-400); Red Blood Count 4.31 X10*6/uL (4.20-5.50); White Blood Count 5.8 X10*3/uL (4.8-10.8)
[2025-06-07 10:59] LABS: Alanine Aminotransferase 36 U/L (0-31); Albumin Level 4.4 g/dL (3.5-5.0); Alkaline Phosphatase 106 U/L (39-117); Anion Gap 12 (12-20); Aspartate Amino Transferase 28 U/L (5-31); Blood Urea Nitrogen 16 mg/dL (9-16); Calcium 8.9 mg/dL (8.4-10.2); Carbon Dioxide 24 mmol/L (22-29); Chloride 107 mmol/L (96-108); Cholesterol 178 mg/dL (<200); Estimated Glomerular Filt Rate > 60; HDL Cholesterol 56 mg/dL (>40); Potassium 4.1 mmol/L (3.3-5.1); Sodium 139 mmol/L (135-145); Total Protein 6.9 g/dL (6.5-8.0); Triglycerides 145 mg/dL (<150)
[2025-06-07 11:42] LABS: Free T4 (Free Thyroxine) 0.97 ng/dL (0.71-1.85)
[2025-06-07 16:14] LABS: Appearance Urine Clear; Glucose Urine UA Negative (Negative); PH 5.0 (5.0-9.0); Specific Gravity - Urine 1.025 (1.005-1.025)
[2025-06-07 16:44] LABS: Microalbum/Creatinine Ratio Ur 4.0 ug/mg cr (<30)
== END 2025-06-07 06:28 | disposition home or self-care (01) ==
LOC: HO.HMGCLDS 06:27
PROVIDERS: PCP Internal Medicine; Visit Provider Internal Medicine
DX: I10 Essential (primary) hypertension (principal); E78.5 Hyperlipidemia, unspecified; R73.9 Hyperglycemia, unspecified; E55.9 Vitamin D deficiency, unspecified
CPT/HCPCS: 36415; 80053; 80061; 81001; 82043; 82570; 83036; 84439; 84443; 85025

== ENCOUNTER 2025-06-08 10:08 | Outpatient (AMB) | payer OTHER, SELFPAY ==
[2025-06-08 10:22] VITALS: BP 124/78; PULSE 76; RESP 16; TEMP 36.8; O2SAT 96; BMI 29.0
--- NOTE | 2025-06-08 10:22 | A.OFFPC_ITS ---
Vital Signs 06/08/25 10:22 Height 5 ft 6 in Weight 180 lb BMI 29.0 BP 124/78 Blood Pressure Location Rt brachial Position Sitting Respiration 16 Pulse 76 Pulse Source Pulse Oximeter Temp 98.3 F Temp Source Oral Pulse Oximetry (%) 96 Oxygen Delivery Method Room Air Intake Visit Reasons: Annual PE Intake Note: Pt is here today for PE. Pt states that she is getting the pain in her L lower abdomen. Allergies No Known Allergies (No Known Allergies*) Allergy (Verified 06/08/25 10:31) Medication List - Last Reconciled 06/08/25 by Crissy Phan MD acetaminophen 1,000 mg (2 x 500 mg) PO Q6H PRN albuterol sulfate 0.63 mg (3 mL) inhalation QID PRN albuterol sulfate 90 mcg/actuation 2 puffs inhalation Q4-6H PRN amlodipine-olmesartan 10-40 mg 1 tab PO DAILY Breo Ellipta 200-25 mcg/dose (fluticasone furoate-vilanterol) 1 inh inhalation DAILY NS cholestyramine (with sugar) 4 gram 4 g p.o. b.i.d. dissolved in water; PO; 30 days esomeprazole magnesium 40 mg PO DAILY nebulizers As directed paroxetine HCl 40 mg PO DAILY rosuvastatin (Crestor) 10 mg PO DAILY Tobacco use date assessed: 06/08/25 Fall risk assessment: No Falls in past year Last assessed Fall Risk: 06/08/25 Dental Screening Dental Screen Date: 06/08/25 Did you have a dental visit in the last 12 months?: Yes Did you have a dental problem in the last 6 months where you did not have access to dental care?: No Was dental information given to patient?: Patient has dentist HPI Annual PE HPI Details Pt presents for PE. Pt c/o persistent L groin pain worse when walking or standing for long time. Patient reports intermittent left lower quadrant abdominal pain worse after eating. She denies any change in bowel habits, hematochezia melena nausea vomiting fever chills dysuria hematuria. Patient complains of painful swelling under right mandibular on and off for a few weeks. She denies sore throat tooth ache fever or chills. [facility] Medical History (Updated 06/08/25 @ 11:13 by Crissy Phan MD) GERD with esophagitis Submandibular lymphadenopathy SOB (shortness of breath) Asthma Hyperglycemia Dysplastic nevi Tinnitus Elevated LFTs Hyperlipidemia Annual physical exam Trochanteric bursitis of right hip Elevated cholesterol Thyroid nodule Depression KELLY (obstructive sleep apnea) Hypertension Surgical History (Updated 06/08/25 @ 10:48 by Crissy Phan MD) History of partial splenectomy History of surgery on right wrist Hx of hysterectomy Hx of cholecystectomy H/O esophagogastroduodenoscopy Hx of colonoscopy Family History Father Parkinsons Asbestos exposure Mother COPD (chronic obstructive pulmonary disease) Diabetes Social History Household Members: Spouse Housing: House Are you a primary acute care occupational therapist to a significant other at home: No Do you presently have visiting nurse or other home services: No Alcohol intake: current Alcohol intake frequency: holidays/special occasions only Patient Tobacco Use Status: Former Tobacco user e-Cigarette/Vaping Use: Never Used service: No Current occupational status: employed Cognitive needs: No Hearing needs: No Vision needs: Yes Questionnaire Thrive Questionnaire Date Thrive assessed: 12/01/24 I am a: Patient What is your living situation today?: I have a steady place to live Within the past 12 months, did the food you bought not last and you didn't have the money to get more?: Never true Within the past 12 months, did you worry whether your food would run out before you got money to buy more?: Never true Do you have trouble paying for medicines?: No Do you have trouble getting transportation to medical appointments?: No Do you have trouble paying your heating and electricity bill?: No Do you have trouble taking care of your child, family member or friend?: No Do you have trouble with day-to-day activities such as bathing, preparing meals, shopping, managing finances, etc.?: No Are you currently unemployed and looking for a job?: No Are you interested in more education?: No Please select the resources that you would like help with: None Currently or been in a relationship where the following occur: No concerns reported THRIVE Score: 0 CARA-7 AMB Questionnaire CARA-7 Date CARA - 7 assessed: 12/05/24 Source: Developed by Drs. Sunny Monk, Lou Pinto, Sourav Ott and colleagues, with an educational moustapha from [employer]. Review of Systems Const All systems reviewed & are unremarkable except as noted in HPI and below Eyes Reports no additional complaints ENT Reports no additional complaints Card Reports no additional complaints Resp Reports no additional complaints GI Reports no additional complaints Reports no additional complaints Physical exam (Primary Care) Vital Signs: Last Vital Signs Temp 98.3 F 06/08/25 10:22 Pulse 76 06/08/25 10:22 Resp 16 06/08/25 10:22 BP 124/78 06/08/25 10:22 Pulse Ox 96 06/08/25 10:22 Oxygen Delivery Method Room Air 06/08/25 10:22 BMI result Body Mass Index 29.0 Tobacco/Smoking Status: Tobacco use Status Tobacco use date assessed 06/08/25 06/08/25 10:27 Patient Tobacco Use Status Former Tobacco user 06/08/25 10:24 e-Cigarette/Vaping Use Never Used 06/08/25 10:24 Thrive Assessment: Date of Thrive Assessment Date Thrive assessed 12/01/24 06/08/25 10:24 Currently or been in a relationship where the following occur: No concerns reported Const General: no acute distress HENMT Head: Yes normal to inspection Ears: hearing grossly normal bilaterally Face and sinus: Yes normal facial exam Teeth and gingiva: dentition normal Eyes General: appearance normal, both eyes and all related structures Neck Other: There is slightly tender enlarged palpable lymph node in right submandibular region, mobile shotty , no skin erythema or warmth Neck: Yes supple Resp Effort & Inspection: normal respiratory effort Auscultation: clear to auscultation bilaterally Cardio Rhythm: regular rhythm Heart sounds: S1 normal heart sound present and S2 normal heart sound present GI Inspection: Yes normal to inspection Palpation (GI): Soft to palpation and Tenderness to palpation present (GI) in the LLQ; with no rebound tenderness Auscultation: normal bowel sounds General: Yes Bimanual renal exam normal bilaterally Coding Level of Care Code Est Pt Prev Care >65y(45242) Diagnoses Hip pain, bilateral M25.551; M25.552 Hypothyroid E03.9 Diverticulitis K57.92 Hyperlipidemia E78.5 Hyperglycemia R73.9 Submandibular lymphadenopathy R59.0 Annual physical exam Z00.00 Assessment & Plan Assessment & Plan (1) Hip pain, bilateral: Code(s): M25.551 - Pain in right hip; M25.552 - Pain in left hip Category: Medical Plan: Obtain x-ray of both hips patient was giving stretching exercises (2) Hypothyroid: Comment: Subclinical Code(s): E03.9 - Hypothyroidism, unspecified Category: Medical Plan: Repeat TSH in 2 months (3) Diverticulitis: Code(s): K57.92 - Diverticulitis of intestine, part unspecified, without perforation or abscess without bleeding Category: Medical Plan: Obtain CT of the abdomen and pelvis to evaluate for diverticulitis (4) Hyperlipidemia: Comment: cont statin Code(s): E78.5 - Hyperlipidemia, unspecified Category: Medical Plan: Continue statin (5) Hyperglycemia: Comment: A1C 5,7 12/2024 Code(s): R73.9 - Hyperglycemia, unspecified Category: Medical Plan: A1c is 5.4, continue ADA diet regular exercise (6) Submandibular lymphadenopathy: Comment: right Code(s): R59.0 - Localized enlarged lymph nodes Category: Medical Plan: Obtain soft tissue neck ultrasound to evaluate (7) Annual physical exam: Code(s): Z00.00 - Encounter for general adult medical examination without abnormal findings Category: Medical Plan: Well-balanced diet regular physical activity discussed with the patient. She is up-to-date with the mammogram colonoscopy Orders: Orders Triiodothyronine T3 Free 2 Months E03.9 - Hypothyroidism, unspecified US soft tiss head and/or neck Today R59.0 - Localized enlarged lymph nodes XR hip BI w PEL1V Today M25.551 - Pain in right hip, M25.552 - Pain in left hip TSH reflex Free T4 2 Months E03.9 - Hypothyroidism, unspecified CT abdomen pelvis w IV con Today K57.92 - Diverticulitis of intestine, part unspecified, without perforation or abscess without bleeding
== END 2025-06-08 11:15 | disposition home or self-care (01) ==
LOC: HO.HMCC 10:08
PROVIDERS: PCP Internal Medicine; Visit Provider Internal Medicine
DX: Z00.00 Encounter for general adult medical examination without abnormal findings (principal); M25.551 Pain in right hip; M25.552 Pain in left hip; E03.9 Hypothyroidism, unspecified; K57.92 Diverticulitis of intestine, part unspecified, without perforation or abscess without bleeding; E78.5 Hyperlipidemia, unspecified; R73.9 Hyperglycemia, unspecified; R59.0 Localized enlarged lymph nodes

== ENCOUNTER 2025-06-09 10:19 | Outpatient (REF) | payer OTHER, SELFPAY ==
--- NOTE | ~2025-06-09 | US_ITS ---
CLINICAL HISTORY: R59.0 - Right submandibular area of lump US neck nonvascular Comparison: None Findings: Sonographic evaluation in the area of clinical concern right submandibular region demonstrates morphologically benign-appearing lymph nodes with reniform shape central fatty hilum normal cortices without cortical disruption and normal central rather than peripheral flow measuring 0.7 x 0.7 x 1.1 cm and 0.5 x 0.4 x 0.4 cm. Impression: Morphologically benign-appearing lymph nodes in the area of clinical concern right submandibular region This document has been electronically signed by: Farhad Gonzalez MD on 06/09/2025 13:00:03
== END 2025-06-09 10:20 | disposition home or self-care (01) ==
LOC: HO.HMGCX 10:19
PROVIDERS: PCP Internal Medicine; Visit Provider Internal Medicine
DX: R59.0 Localized enlarged lymph nodes (principal)
CPT/HCPCS: 76536

== ENCOUNTER → 2025-06-09 10:21 | Outpatient (BNV) | payer OTHER, SELFPAY | PROVIDERS: PCP Internal Medicine; Visit Provider Radiology Diagnostic Radiology | DX: R59.0 Localized enlarged lymph nodes (principal) | CPT/HCPCS: 76536 ==

== ENCOUNTER 2025-06-15 12:13 | Outpatient (REF) | payer OTHER, SELFPAY ==
--- NOTE | ~2025-06-15 | MM_ITS ---
EXAMINATION: MM SCREENING DIGITAL BREAST TOMOSYNTHESIS, BILATERAL CLINICAL INFORMATION: Screening. Asymptomatic. COMPARISON: Comparison made to multiple prior, most recent November 05, 2023, and most remote August 09, 2013. TECHNIQUE: Digital breast tomosynthesis is performed in mediolateral oblique and craniocaudal views along with computer-aided detection (CAD). Synthesized 2D images are generated from the tomosynthesis. FINDINGS: BREAST COMPOSITION: The breasts are heterogeneously dense, which may obscure small masses. BILATERAL BREASTS: No significant masses, suspicious calcifications or other abnormalities are seen in either breast. MM/MM tomosynthesis screening BI IMPRESSION: BILATERAL BREASTS: Negative, no mammographic evidence of malignancy. Normal interval follow-up is recommended in 12 months. ASSESSMENT: BI-RADS: Category 1: Negative RECOMMENDATION: Routine annual mammography screening. FOLLOW-UP: 1 year F/U This examination should not preclude the clinical evaluation of a suspicious palpable abnormality. This patient's information was entered into a reminder system with a target due date for their next mammogram. Electronically signed by: Humza Barba MD 06/15/2025 07:55 PM EST
== END 2025-06-15 12:14 | disposition home or self-care (01) ==
LOC: HO.MAMMO 12:13
PROVIDERS: PCP Internal Medicine; Visit Provider Internal Medicine
DX: Z12.31 Encounter for screening mammogram for malignant neoplasm of breast (principal)
CPT/HCPCS: 77063; 77067

== ENCOUNTER → 2025-06-15 12:30 | Outpatient (BNV) | payer OTHER, SELFPAY | PROVIDERS: PCP Internal Medicine; Visit Provider Radiology Body Imaging | DX: Z12.31 Encounter for screening mammogram for malignant neoplasm of breast (principal) | CPT/HCPCS: 77063; 77067 ==

== ENCOUNTER 2025-06-20 11:20 | Outpatient (REF) | payer OTHER, SELFPAY ==
--- NOTE | ~2025-06-20 | XR_ITS ---
EXAMINATION: XR BILATERAL HIPS WITH AP PELVIS CLINICAL INFORMATION: M25.551 - Pain in right hip. COMPARISON: 03/07/2020. TECHNIQUE: AP view of the pelvis and 2 views of each hip were obtained. FINDINGS: There is no fracture, dislocation, or suspicious bone lesion. There is mild osteoarthrosis of both hip joints symmetrically, without evidence of AVN or abnormal femoral head contour. Normal acetabular coverage bilaterally. There is mild degenerative arthritis in both SI joints and the lower lumbar spine. Soft tissues demonstrate retained contrast in the urinary bladder. Soft tissues otherwise grossly normal. XR/XR hip BI w PEL1V IMPRESSION: 1. No acute bony abnormalities. Mild degenerative arthritis in both hip joints. Electronically signed by: Monico Benavidez MD 06/20/2025 11:53 AM [facility]
--- NOTE | ~2025-06-20 | CT_ITS ---
EXAMINATION: CT ABDOMEN AND PELVIS WITH CONTRAST CLINICAL INFORMATION: K 57.92. Diverticulitis of intestine, part unspecified, without perforation COMPARISON: CT pelvis dated September 06, 2018. TECHNIQUE: Multidetector volumetric images were obtained from the superior aspect of the liver through the pubic symphysis following administration 85 mL of Omnipaque 350 intravenous contrast. Sagittal and coronal reformatted images were obtained on the technologist's workstation. Oral contrast: No This CT examination was performed using dose optimization techniques as appropriate, variously including the following: *Automated exposure control *Adjustment of mA and/or kV according to patient size (this includes techniques or standardized protocols for targeted exams where dose is matched to indication/reason for exam; i.e. extremities or head) *Use of iterative reconstruction technique DLP: 388 mGy-cm FINDINGS: LUNG BASES: No acute airspace disease or gross pulmonary nodules. LIVER, GALLBLADDER, AND BILIARY TREE: Liver measures 16 cm. Decreased enhancement pattern. Heterogeneous enhancement. No enhancing mass. Main portal veins, hepatic veins and intrahepatic portion of the IVC are patent. Status post cholecystectomy. No intrahepatic or extrahepatic biliary ductal dilatation. PANCREAS: No solid or cystic lesion. No main pancreatic ductal dilatation. No peripancreatic fluid collection. SPLEEN: 6 cm. Dystrophic calcification. No solid or cystic mass. ADRENAL GLANDS: No nodular lesions. KIDNEYS AND URETERS: No hydronephrosis. No gross nephrolithiasis. No enhancing mass. Subcentimeter cyst, left kidney. Normal enhancement pattern of the renal parenchyma. No dilatation of the ureters. BLADDER: Fluid-filled nearly collapsed. GASTROINTESTINAL TRACT: Collapsed appearance of the left hemicolon. Abundant stool, right hemicolon. Gas and fluid-filled prominent small bowel loops. Questionable intestinal wall thickening, distal ileal loops and terminal ileum. I do not see the appendix. No pericolonic fluid collections or edema pattern. No gross diverticulum. No ascites. No pneumoperitoneum. No pneumatosis intestinalis. ABDOMINAL WALL: Diastases abdominal rectus muscles without gross umbilical hernia. LYMPH NODES: No specific prominent mesenteric and retroperitoneal lymph nodes. VASCULAR: Mixed plaques throughout the abdominal aorta wall and iliac arteries without aneurysm or dissection. Retroaortic trajectory of the left main renal vein. There is left renal vein anterior to the aorta in normal position. PELVIC VISCERA: Absent. OSSEOUS STRUCTURES: Sclerosis and the right symphysis pubis. Vacuum phenomenon, symphysis pubis. Sclerosis and the sacroiliac joints, bilaterally. Multilevel spondylosis pronounced at L5-S1. Transitional vertebra labeled L5. CT/CT abdomen pelvis w IV con IMPRESSION: No gross diverticular disease. Consider enterocolitis versus inflammatory bowel disease. Hepatomegaly and steatosis. Atherosclerosis disease. Concerning right-sided osteitis pubis. Sacroiliitis, bilaterally. Fleischner guidelines were followed. Electronically signed by: Sixto Keller MD 06/20/2025 12:01 PM [facility]
[2025-06-20] MEDS: iohexoL 350 MG/ML 100 ML INFUS..BTL IV (11:41)
== END 2025-06-20 11:21 | disposition home or self-care (01) ==
LOC: HO.CT 11:20
PROVIDERS: PCP Internal Medicine
DX: M25.551 Pain in right hip (principal); M25.552 Pain in left hip; K57.92 Diverticulitis of intestine, part unspecified, without perforation or abscess without bleeding
CPT/HCPCS: 73521; 74177; Q9967

== ENCOUNTER → 2025-06-20 11:23 | Outpatient (BNV) | payer OTHER, SELFPAY | PROVIDERS: PCP Internal Medicine; Visit Provider Radiology Diagnostic Radiology | DX: K57.92 Diverticulitis of intestine, part unspecified, without perforation or abscess without bleeding (principal); K76.0 Fatty (change of) liver, not elsewhere classified; R16.0 Hepatomegaly, not elsewhere classified; I25.10 Atherosclerotic heart disease of native coronary artery without angina pectoris; M46.1 Sacroiliitis, not elsewhere classified; M16.0 Bilateral primary osteoarthritis of hip | CPT/HCPCS: 73521; 74177 ==